=== PATIENT | female | born 1980 | race Caucasian/White ===

== ENCOUNTER → 2022-11-12 | Outpatient (CLI) | payer OTHER ==
[~2022-11-12] MED LIST: RT-ALBUTEROL SULF 2.5 MG/3 ML PRE-MIX VIAL IH ONE
== END ==
LOC: RT 10:09
PROVIDERS: ATTEND Family Medicine
DX: Z02.71 Encounter for disability determination (principal); R06.02 Shortness of breath; R06.00 Dyspnea, unspecified
CPT/HCPCS: 94060

== ENCOUNTER 2023-02-16 10:20 | Inpatient (IN) | payer MEDICAID ==
[2023-02-14 20:00] VITALS: BP 134/69
[~2023-02-16] VITALS: Ht 172.7 cm; Wt 130.0 kg
[2023-02-16] MEDS ORDERED: LACTULOSE SYRUP 10GM/15ML (ENULOSE) 30ML UDC PO PRN (11:00)
[2023-02-16] MEDS ORDERED: MELATONIN 3 MG TABLET PO PRN (11:00)
[2023-02-16] MEDS ORDERED: ALPRAZolam 0.25 MG (XANAX) TAB PO PRN (11:00)
[2023-02-16] MEDS ORDERED: DOCUSATE SODIUM 100 MG (COLACE) CAP PO PRN (11:00)
[2023-02-16] MEDS ORDERED: FLEET ENEMA ADULT 1 EA BTL PR PRN (11:00)
[2023-02-16] MEDS ORDERED: BISACODYL 10 MG SUPP (DULCOLAX) PR PRN (11:00)
[2023-02-16] MEDS ORDERED: diphenhydrAMINE 25 MG TAB (BENADRYL) PO PRN (11:00)
[2023-02-16] MEDS ORDERED: guaiFENesin/CODEINE (ROBITUSSIN AC) 10ML UDC PO PRN (11:00)
[2023-02-16] MEDS ORDERED: CALCIUM CARBONATE 500 MG (TUMS) TAB.CHEW PO PRN (11:00)
[2023-02-16] MEDS ORDERED: LOPERAMIDE 2 MG (IMODIUM) TABLET PO PRN (11:00)
[2023-02-16] MEDS ORDERED: ACETAMINOPHEN 325 MG TABLET PO PRN (11:00)
[2023-02-16] MEDS ORDERED: AMIT50TA3 PO (11:14)
[2023-02-16] MEDS ORDERED: RT-ALBUINH INH (11:14)
[2023-02-16] MEDS ORDERED: DULO30CA49 PO (11:27)
[2023-02-16] MEDS ORDERED: FAMO40TA6 PO (11:27)
[2023-02-16] MEDS ORDERED: [UNRECOGNIZED DRUG - OTHER] PO (11:27)
[2023-02-16] MEDS ORDERED: AMLO10TA4 PO (11:28)
[2023-02-16] MEDS ORDERED: DICY10CA12 PO (11:28)
[2023-02-16] MEDS ORDERED: ATOR80TA76 PO (11:28)
[2023-02-16] MEDS ORDERED: FURO-124 PO (11:30)
[2023-02-16] MEDS ORDERED: FLUT1BLS23 IH (11:30)
[2023-02-16] MEDS ORDERED: INSU100I48 SQ (11:40)
[2023-02-16] MEDS ORDERED: IPRA3AMP31 IH (11:40)
[2023-02-16] MEDS ORDERED: INSU500I SQ (11:40)
[2023-02-16] MEDS ORDERED: GABA800T10 PO (11:40)
[2023-02-16] MEDS ORDERED: DULO40CA2 PO (11:49)
[2023-02-16] MEDS ORDERED: LOSA100T4 PO (11:49)
[2023-02-16] MEDS ORDERED: HYDR-3584 PO (11:51)
[2023-02-16] MEDS ORDERED: HYDR50TA76 PO (11:51)
[2023-02-16] MEDS ORDERED: MECL-149 PO (11:55)
[2023-02-16] MEDS ORDERED: OXYB10TA29 PO (12:10)
[2023-02-16] MEDS ORDERED: POTA10TA PO (12:10)
[2023-02-16] MEDS ORDERED: MELA10CA2 PO (12:10)
[2023-02-16] MEDS ORDERED: METF-865 PO (12:10)
[2023-02-16] MEDS ORDERED: MVI (12:10)
[2023-02-16] MEDS ORDERED: PANT40GR PO (12:10)
[2023-02-16] MEDS ORDERED: MTP25TSR PO (12:10)
[2023-02-16] MEDS ORDERED: TIZA4CAP8 PO ×2 (12:10→12:11)
[2023-02-16] MEDS ORDERED: MELO7.5T46 PO (12:10)
[2023-02-16] MEDS ORDERED: MULT-1136 PO (12:11)
[2023-02-16] MEDS ORDERED: VANCO IV (12:34)
[2023-02-16 13:11] VITALS: BP 134/69
--- NOTE | 2023-02-16 15:33 | PM&R Post Admission Assessment ---
PM&R HP Date of Visit: Feb 16, 2023 Time of Visit: 15:30 History of Present Illness Chief complaint: Recovery from left metatarsal amputation by podiatry at [facility] HPI: This is a 42-year-old female whose primary care provider is a nurse practitioner on [address] [place] [address] in [place] who also sees Dr. Oleary cardiology and Dr. Chamberlain pulmonology who has a history of severe insulin resistance diabetes who takes a large amount of regular insulin due to resistance and who was unable to get a BiPAP set up for her severe sleep apnea so she is maintained on oxygen while hospitalized who presented from [facility] following a left metatarsal amputation by podiatry due to bone exposed with acute on chronic osteomyelitis. Currently she is doing much better on current pain medications that was restarted along with the rest of her home medication. She remains on vancomycin 1250 mg every 12 hours. [facility] H&P HPI: Gogo Diaz who is being admitted through the emergency room with chief complaint of leftfoot pain. She has a history of osteomyelitits and diabetic foot ulcer in the left foot, diabetes mellitus, asthma, COPD, hypertension.Patient was admitted 3 weeks ago for left diabetic foot wound and was diagnosed with osteomyelitis. She was discharged on antibiotics and completed them. After that she followed up with her PCP because she started having redness again. Friday she was started on Augmentin and she followed up with wound care on Friday, and at that time thought it was getting a little bit better. Today pain has worsened and redness has worsened. She denies any fever or chills. She denies any drainage of the wound. ? Anxiety ? Arthritis ? Asthma ? Calculus of kidney Two episodes, last 2012, lithotrpsy, first 1995 complicated by sepsis ? Cervical high risk human papillomavirus (HPV) DNA test positive ? Depression ? Diabetes mellitus Dx 2005 age 25 on insulin and oral med ? Gastroparesis 10/2007 ? GERD (gastroesophageal reflux disease) ? Headache ? High anion gap metabolic acidosis 02/06/2019 ? History of complications due to general anesthesia very sick afterwards ? HTN (hypertension) ? Hx of abnormal cervical Pap smear ? Hyperlipidemia ? Hypokalemia 02/05/2019 ? Hypomagnesemia 08/15/2018 ? IBS (irritable bowel syndrome) ? MRSA (methicillin resistant Staphylococcus aureus) ? Psychosis ? Pyelonephritis 01/31/2017 ? UTI due to extended-spectrum beta lactamase (ESBL) producing Escherichia coli [facility] discharge summary from 02/16/2023 Discharge Diagnoses and Relevant Hospital Course: [address] Active Hospital Problems Diagnosis ? Acute osteomyelitis ? Cellulitis ? Diabetic foot ulcer ? Osteomyelitis of left foot ? Mixed hyperlipidemia ? Obesity, Class III, BMI 40-49.9 (morbid obesity) ? Borderline personality disorder ? Diabetic polyneuropathy associated with type 2 diabetes mellitus ? Gastroparesis due to DM ? Essential hypertension Resolved Hospital Problems No resolved problems to display. [address] Gogo Gill 5b is a [address] 42 [address] femaleArial 5b who was admitted to [facility] on [address] 02/09/[address] and found to have a principle diagnosis of acute osteomyelitis of the left foot. 42 y/o F with pertinent PMH of diabetes and chronic foot wound who presented to the hospital with worsening pain and erythema in her foot. She originally incurred a wound to the plantar and distal aspect of her left foot in October. It has not healed since then. She was admitted in December for the wound, received IV antibiotics and debridement, but bone biopsy did not reveal osteomyelitis at that time. She was discharged on oral antibiotics. She restarted oral antibiotics (Augmentin) just prior to this admission, but has not seen significant improvement. XR suggestive of developing osteomyelitis in the left 1st metatarsal head. Wound care evaluation notes "bone palpable". MRI report pending. 02/11: No new issues. Pt did have some pain but it was relieved with prn analgesics. She is somewhat melancholy and requests the life teacher comes to speak with her, but declines to expound further. 02/12 patient was seen and examined. S/P toe amputation yesterday. Reported some pain this morning but pain medication is helping. 02/13 patient was seen and examined. Was scheduled to be discharged today but her OR culture came back positive for Gram positive cocci in clusters. I discussed with ID and microbiology. We will await susceptibility of the current culture to determine antibiotics to be discharged home with 02/14 patient was seen and examined. No new complains. I discussed with ID, patient is sensitive to Doxy. 02/15 patient was seen and examined. Awaiting placement tomorrow Today, patient was seen and examined at the bedside. She has no new complains. Her pathology came out as acute osteomyelitis. I have discharged her on Vancomycin to complete 03/30. She will follow up with ID to make adjustments to this medication. Patient discharged in stable condition Past [id number] Hx Past Med/Social Hx: Reviewed Nursing Past Med/Soc Hx, Reviewed and Corrections made Patient Social History Marrital Status: single Employed/Student: unemployed Alcohol Use: Denies Use Smoking Status: Former Smoker Past Medical History Surgeries: Orthopedic Respiratory: Sleep Apnea Currently Using CPAP: No Cardiac: High Cholesterol, Hypertension, Peripheral Vascular Neurological: Neuropathy Genitourinary: Kidney Infection, Bladder Infection, Kidney Stones, Renal Failure Gastrointestinal: Gastroesophageal Reflux Musculoskeletal: Arthritis Endocrine: Diabetes, Insulin dep PM&R Allergy/Meds/Data Review Allergies Coded Allergies: hydrocodone (Unverified Allergy, Severe, Anaphylaxis, 02/16/23) PER PATIENT, TOLERATED OXYCODONE FINE IN PAST 02/16/23 tramadol (Unverified Allergy, Severe, Anaphylaxis, 11/12/22) Sulfa (Sulfonamide Antibiotics) (Verified Allergy, Unknown, Vomiting, 02/16/23) dapagliflozin (Verified Allergy, Unknown, 02/16/23) liraglutide (Verified Allergy, Unknown, 02/16/23) Uncoded Allergies: fresh tomatoes, can eat them cooked (Allergy, Unknown, hives, 02/16/23) fish (Adverse Reaction, Unknown, Nausea/Vomiting, 02/16/23) Home Medications Scheduled Albuterol Sulfate (Ventolin Hfa), 2 PUFF INH Q6H Amitriptyline HCl (Amitriptyline HCl), 50-100 MG PO HS Amlodipine Besylate (Norvasc), 10 MG PO HS Atorvastatin Calcium (Atorvastatin Calcium), 80 MG PO HS Dicyclomine HCl (Dicyclomine HCl), 10 MG PO TID Duloxetine HCl (Duloxetine HCl), 40 MG PO BID Famotidine (Famotidine), 40 MG PO BID Fluticasone/Vilanterol (Fluticasone-Vilanterol 100-25), 1 EACH IH DAILY Furosemide (Lasix), 40 MG PO DAILY Gabapentin (Gabapentin), 800 MG PO TID Hydroxyzine HCl (Hydroxyzine HCl), 10 MG PO TID Hydroxyzine HCl (Hydroxyzine HCl), 50 MG PO HS Insulin Lispro (Insulin Lispro Kwikpen U-100), 100 UNIT SQ UD Insulin Regular, Human (Humulin R U-500 Kwikpen), 90 UNIT SQ BID Losartan Potassium (Cozaar), 100 MG PO DAILY Meclizine HCl (Meclizine HCl), 25 MG PO Q6H Melatonin (Melatonin), 10 MG PO HS Meloxicam (Meloxicam), 7.5 MG PO DAILY Metformin HCl (Metformin HCl ER), 500 MG PO BID Metoprolol Succinate (Metoprolol Succinate), 25 MG PO DAILY Multivitamin (Multivitamin), 1 EACH PO DAILY Oxybutynin Chloride (Oxybutynin Chloride ER), 10 MG PO HS Pantoprazole Sodium (Pantoprazole Sodium), 40 MG PO BID Potassium Chloride (K-Tab ER), 20 MEQ PO DAILY Tizanidine HCl (Tizanidine HCl), 4 MG PO BID [Citracal D Max], TAB PO DAILY [Vanco], 1,250 MG IV Q12H Scheduled PRN Ipratropium/Albuterol Sulfate (Iprat-Albut 0.5-3(2.5) mg/3 ml), 3 ML IH Q6H PRN for SHORTNESS OF BREATH Tizanidine HCl (Tizanidine HCl), 4 MG PO Q6H PRN for SPASMS Discontinued Medications Duloxetine HCl (Duloxetine HCl), 30 MG PO BID Discontinued Reason: No Longer Taking [Mvi], 1 TAB DAILY Discontinued Reason: Prescription changed Current Medications Current Medications Reviewed Laboratory Data Laboratory Tests 02/16/23 12:25: Glucometer 130H 02/16/23 15:17: Glucometer 156H Review of Systems Constitutional: see HPI, malaise, weakness EENTM: no symptoms reported Respiratory: no symptoms reported Cardiovascular: no symptoms reported Gastrointestinal: no symptoms reported Genitourinary: no symptoms reported Musculoskeletal: back pain, joint pain, muscle pain, muscle stiffness, muscle cramps Skin: no symptoms reported Psychiatric/Neurological: See HPI All Other Systems Reviewed Negative Unless Noted: Yes Physical Exam Physical Exam Vital Signs Vital Signs - First Documented 02/16/23 02/16/23 13:01 13:11 Temp 36.2 Pulse 84 Resp 20 B/P (MAP) 134/69 (90) Pulse Ox 99 O2 Delivery Nasal Cannula O2 Flow Rate 3.00 Capillary Refill : Height, Weight, BMI Height: '" Weight: lbs. oz. kg; 42.98 BMI Method: General Appearance: No Apparent Distress, WD/WN, Chronically ill, Obese Eyes: Bilateral Eye Normal Inspection, Bilateral Eye PERRL HEENT: PERRL/EOMI, Normal ENT Inspection, Pharynx Normal Neck: Full Range of Motion, Normal Inspection, Non Tender, Supple, Carotid Bruit Respiratory: Chest Non Tender, Lungs Clear, Normal Breath Sounds, No Accessory Muscle Use, No Respiratory Distress Cardiovascular: Regular Rate, Rhythm, No Edema, No Gallop, No JVD, No Murmur, Normal Peripheral Pulses Gastrointestinal: Normal Bowel Sounds, No Organomegaly, No Pulsatile Mass, Non Tender, Soft Back: Normal Inspection, No CVA Tenderness, No Vertebral Tenderness Extremity: Normal Capillary Refill, Normal Inspection, Normal Range of Motion, Non Tender, No Calf Tenderness, No Pedal Edema Neurologic/Psychiatric: Alert, Oriented x3, No Motor/Sensory Deficits, certified master safecracker II- XII Norm as Tested, Abnormal Gait, Depressed Affect, Motor Weakness (Left foot and leg due to pain and amputation) Skin: Normal Color, Warm/Dry Lymphatic: No Adenopathy PM&R Medical Assessment & Plan REHAB/MEDICAL ASSESSMENT AND PLAN: REHAB IMPAIRMENT GROUP: Left metatarsal amputation due to acute on chronic osteomyelitis with bone exposed ETIOLOGIC DIAGNOSIS: Left metatarsal amputation due to acute on chronic osteomyelitis with bone expos ed The comorbidities that impact the patients function and/or functional outcome by: diabetes with significant insulin resistance, obesity, noncompliance with BiPAP, REHAB PLAN: The patient is being admitted to our comprehensive inpatient rehabilitation facility and can tolerate the intensity of service consisting of at least: 180 minutes of therapy a day, 5 out of 7 days a week Rehab treatment will consist of: PT and OT will focus on assistive devices in order to regain independence with ambulation and independence in ADLs The patient/family has a good understanding of our discharge process and will benefit from an interdisciplinary inpatient rehabilitation program. The patient has potential to make improvement and is in need of at least two of the following multidisciplinary therapies including but not limited to physical, occupational, speech, and prosthetics and orthotics. Additionally the patient will need services from respiratory, nutritional services, wound care, psychology, etc. (Customize this to each patient). Given the patients complex condition and risk of further medical complications, rehabilitation services cannot be safely or effectively provided at a lower level of care such as a usp facility. BARRIERS TO DISCHARGE: [id number] diabetes ESTIMATED LOS: 7 days DISPOSITION: home RELEVANT CHANGES SINCE PREADMISSION SCREENING: I have compared the patients medical and functional status at the time of the preadmission screening and there are: no changes PROGNOSIS: fair REHABILITATION GOALS: 1.PT and OT will focus on assistive devices in order to regain independence with ambulation and independence in ADLs All the above goals were reviewed with the patient and he/she is in agreement. By signing this document, I acknowledge that I have personally performed a full physical examination on this patient within 24 hours of admission to this inpatient rehabilitation facility and have determined the patient to be able to tolerate the above course of treatment at an intensive level for a reasonable period of time. I will be completing a detailed individualized Plan of Care for this patient by day #4 of the patients stay based upon the Preadmission Screen, the Post-Admission Evaluation, and the therapy evaluations. Admission Dx/Comorbidities: (1) Status post amputation of left foot through metatarsal bone ICD Codes: Z89.432 - Acquired absence of left foot Assessment/Plan Assessment and Plan Assess & Plan/Chief Complaint Assessment: Status post left first metatarsal amputation due to acute on chronic osteomyelitis with bone exposed on presentation Diabetes mellitus with severe insulin resistance on large amount of regular insulin Obesity Noncompliance with BiPAP Hypertension Hyperlipidemia Renal lithiasis history Plan: IV vancomycin Local wound intermediate meds Pain control Bowel regimen KRISTINA HERCULES DO Feb 16, 2023 15:33
[2023-02-16] MEDS ORDERED: RT-ALBUTEROL/IPRATROPIUM 3 ML (DUONEB) VIAL IH PRN (15:45)
[2023-02-16] MEDS ORDERED: INSULIN LISPRO 100 UNIT SQ SCH (15:45)
[2023-02-16] MEDS ORDERED: ONDANSETRON 4 MG/2 ML (SDV) Z0FRAN IVP PRN (15:45)
[2023-02-16] MEDS: MECLIZINE 25 MG (ANTIVERT) TAB PO SCH ×2 (16:30→22:29)
[2023-02-16] MEDS: inSUlin (REGULAR) HUMAN 1 UNIT/0.01 ML (CHARGE PER UNIT) SC SCH (16:56)
[2023-02-16] MEDS: VANCOMYCIN 1250MG/250ML PREMIX 250 ML IV SCH (17:42)
[2023-02-16 19:16] VITALS: BP 118/54
[2023-02-16] MEDS: ONDANSETRON 4 MG (ZOFRAN) ORAL DISSOLVE TAB PO PRN ×2 (20:57→21:12)
[2023-02-16] MEDS: DULoxetine 20 MG (CYMBALTA) CAP PO SCH (20:58)
[2023-02-16] MEDS: metFORMIN XR 500 MG (GLUCOPHAGE XR) TAB PO SCH (20:58)
[2023-02-16] MEDS: hydrOXYzine (ATARAX) 10 MG TAB PO SCH (20:59)
[2023-02-16] MEDS: ENOXAPARIN 40 MG/0.4 ML (LOVENOX) SYR SC SCH (20:59)
[2023-02-16] MEDS: SENNA W/DOCUSATE (SENOKOT S) TABLET PO SCH (21:00)
[2023-02-16] MEDS ORDERED: hydrOXYzine (VISTARIL/ATARAX) 25 MG capsule/tablet PO SCH (21:00)
[2023-02-16] MEDS: DOCUSATE SODIUM 100 MG (COLACE) CAP PO SCH (21:00)
[2023-02-16] MEDS: polyethylene glycoL POWDER 17 GM (MIRALAX) PACK PO SCH (21:00)
[2023-02-16] MEDS ORDERED: AMITRIPTYLINE 25 MG (ELAVIL) TAB PO SCH (21:00)
[2023-02-16] MEDS: FAMOTIDINE 20 MG (PEPCID) TABLET PO SCH (21:01)
[2023-02-16] MEDS: amLODIPine 10 MG (NORVASC) TAB PO SCH (21:01)
[2023-02-16] MEDS: MELATONIN 10 MG TABLET PO SCH (21:01)
[2023-02-16] MEDS: OXYBUTYNIN (DITROPAN) 5 MG TAB PO SCH (21:01)
[2023-02-16] MEDS: DICYCLOMINE 10 MG (BENTYL) CAP PO SCH (21:01)
[2023-02-16] MEDS: GABAPENTIN 400 MG (NEURONTIN) CAP PO SCH (21:02)
[2023-02-16] MEDS: PANTOPRAZOLE 40 MG (PROTONIX) TAB PO SCH (21:09)
[2023-02-16] MEDS: RT-ALBUTEROL HFA 8.5 GM INHALER IH SCH (21:12)
[2023-02-17] MEDS: RT-ALBUTEROL HFA 8.5 GM INHALER IH SCH ×4 (03:07→20:59)
[2023-02-17] MEDS: MECLIZINE 25 MG (ANTIVERT) TAB PO SCH (04:00)
[2023-02-17] MEDS: VANCOMYCIN 1250MG/250ML PREMIX 250 ML IV SCH ×2 (05:54→18:46)
[2023-02-17 06:08] LABS: BASOPHILS # (AUTO) 0.1 10^3/uL (0.0-0.1); BASOPHILS % (AUTO) 1 % (0-10); EOSINOPHILS # (AUTO) 0.2 10^3/uL (0.0-0.3); EOSINOPHILS % (AUTO) 2 % (0-10); HEMATOCRIT 31 % (35-52); HEMOGLOBIN 9.5 g/dL (11.5-16.0); LYMPHOCYTES # (AUTO) 1.6 10^3/uL (1.0-4.0); LYMPHOCYTES % (AUTO) 15 % (12-44); MEAN CORPUSCULAR HEMOGLOBIN 29 pg (25-34); MEAN CORPUSCULAR HGB CONC 31 g/dL (32-36); MEAN CORPUSCULAR VOLUME 93 fL (80-99); MEAN PLATELET VOLUME 9.6 fL (9.0-12.2); MONOCYTES # (AUTO) 0.4 10^3/uL (0.0-1.0); MONOCYTES % (AUTO) 4 % (0-12); NEUTROPHILS # (AUTO) 7.6 10^3/uL (1.8-7.8); NEUTROPHILS % (AUTO) 75 % (42-75); PLATELET COUNT 382 10^3/uL (130-400); WHITE BLOOD COUNT 10.2 10^3/uL (4.3-11.0)
[2023-02-17 06:19] LABS: ALBUMIN 3.2 GM/DL (3.2-4.5)
[2023-02-17 06:20] LABS: POTASSIUM 4.4 MMOL/L (3.6-5.0)
[2023-02-17 06:21] LABS: CALCIUM 9.1 MG/DL (8.5-10.1)
[2023-02-17 06:22] LABS: TOTAL PROTEIN 6.6 GM/DL (6.4-8.2)
[2023-02-17 06:24] LABS: BILIRUBIN,TOTAL 0.3 MG/DL (0.1-1.0)
[2023-02-17 06:26] LABS: CREATININE SERUM 0.88 MG/DL (0.60-1.30)
--- NOTE | 2023-02-17 06:26 | PM&R Progress Note ---
Subjective HPI/CC On Admission Date Seen by Provider: Feb 17, 2023 Time Seen by Provider: 09:00 Subjective/Events-last exam 02/17/2023: Patient doing really well Thinks she is retaining urine so we will BladderScan Oxycodone makes her nauseated requesting ibuprofen Labs reviewed Review of Systems General: Fatigue, Malaise Musculoskeletal: foot pain Neurological: Weakness Objective Exam Vital Signs Vital Signs Date Time Temp Pulse Resp B/P (MAP) Pulse Ox O2 Delivery O2 Flow Rate FiO2 02/17/23 20:59 95 Nasal Cannula 3.00 02/17/23 19:57 36.2 87 16 143/72 (95) Capillary Refill : General Appearance: No Apparent Distress, WD/WN, Chronically ill, Obese HEENT: PERRL/EOMI, Normal ENT Inspection, Pharynx Normal Neck: Full Range of Motion, Normal Inspection, Non Tender, Supple, Carotid Bruit Respiratory: Chest Non Tender, Lungs Clear, Normal Breath Sounds, No Accessory Muscle Use, No Respiratory Distress Cardiovascular: Regular Rate, Rhythm, No Edema, No Gallop, No JVD, No Murmur, Normal Peripheral Pulses Gastrointestinal: Normal Bowel Sounds, No Organomegaly, No Pulsatile Mass, Non Tender, Soft Back: Normal Inspection, No CVA Tenderness, No Vertebral Tenderness Extremity: Normal Capillary Refill, Normal Inspection, Normal Range of Motion, Non Tender, No Calf Tenderness, No Pedal Edema Neurologic/Psychiatric: Alert, Oriented x3, No Motor/Sensory Deficits, bisque finisher II- XII Norm as Tested, Abnormal Gait, Depressed Affect, Motor Weakness (Left foot and leg due to pain and amputation) Skin: Normal Color, Warm/Dry, Other (left foot dressing intact) Lymphatic: No Adenopathy Results/Procedures Lab Laboratory Tests 02/17/23 05:53 Patient resulted labs reviewed. [facility] Transfers Therapy Code Descriptions/Definitions Functional Cyrus Measure: 0=Not Assessed/NA 4=Minimal Assistance 1=Total Assistance 5=Supervision or Setup 2=Maximal Assistance 6=Modified Cyrus 3=Moderate Assistance 7=Complete IndependenceSCALE: Activities may be completed with or without assistive devices. 2-[id number]-[id number] completes the activity by him/herself with no assistance from a helper. 5-Set-up or Clean-up Assistance-helper sets up or cleans up; patient completes activity. Marion assists only prior to or following the activity. 4-Supervision or Touching Assistance-helper provides verbal cues and/or touching/steadying and/or contact guard assistance as patient completes activity. Assistance may be provided throughout the activity or intermittently. 3-Partial/Moderate Assistance-helper does LESS THAN HALF the effort. Marion lifts, holds or supports trunk or limbs, but provides less than half the effort. 2-Substantial/Maximal Assistance-helper does MORE THAN HALF the effort. Marion lifts or holds trunk or limbs and provides more than half the effort. 4-Kmmcrtngq-sbkvxa does ALL the effort. Patient does none of the effort to c omplete the activity. Or, the assistance of 2 or more helpers is required for the patient to complete the activity. If activity was not attempted, code reason: 7-Patient Refused. 9-Not Applicable-not attempted and the patient did not perform the activity before the current illness, exacerbation or injury. 10-Not Attempted due to Environmental Limitations-(lack of equipment, weather restraints, etc.). 88-Not Attempted due to Medical Conditions or Safety Concerns. Assessment/Plan Assessment and Plan Assess & Plan/Chief Complaint Assessment: Status post left first metatarsal amputation due to acute on chronic osteomyelitis with bone exposed on presentation Diabetes mellitus with severe insulin resistance on large amount of regular insulin Obesity Noncompliance with BiPAP Hypertension Hyperlipidemia Renal lithiasis history Plan: IV vancomycin Local wound [facility] meds Pain control Bowel regimen 02/17/2023: Add ibuprofen Monitor closely (1) Status post amputation of left foot through metatarsal bone KRISTINA HERCULES DO Feb 17, 2023 06:26
[2023-02-17] MEDS: inSUlin (REGULAR) HUMAN 1 UNIT/0.01 ML (CHARGE PER UNIT) SC SCH ×2 (07:15→12:10)
[2023-02-17 07:40] VITALS: BP 132/60
[2023-02-17 07:49] VITALS: BP 132/60
--- NOTE | 2023-02-17 08:19 | Physical Therapy Evaluation ---
PT Evaluation-General Medical Diagnosis Admission Date Feb 16, 2023 at 10:37 Medical Diagnosis: L Metatarsal Amputation Onset Date: Feb 11, 2023 Therapy Diagnosis Therapy Diagnosis: Weakness, Decreased functional mobility Precautions Precautions/Isolations: Fall Prevention, Standard Precautions Weight Bear Status Right Lower Extremity: Right Full Weight Bearing Left Lower Extremity: Left Non Weight Bearing Referral Physician: Argelia Reason for Referral: Evaluation/Treatment Medical History Pertinent Medical History: COPD, HTN, PVD Additional Medical History history of osteomyelitits and diabetic foot ulcer in the left foot, diabetes mellitus, asthma, COPD, hypertension Current History L metatarsal amputation on 02/11/2023; NWB Jose BURRELL Reviewed History: Yes Social History Home: Single Level Current Living Status: Children Entry Into Home: Stairs Without Railing PT Steps Into Home: 8 PT Steps Inside Home: 1 Pt lives at home with her 8 y/o son in a single story house. Approximately 8 steps to enter with R HR. 1 small step in the home. Tub shower with grab bars. Standard toilet. Pt reports that she can get a SC. Mother lives 5 min away Prior Prior Level of Function SCALE: Activities may be completed with or without assistive devices. 4-Loyylaiujr-myooehc completes the activity by him/herself with no assistance from a helper. 5-Set-up or Clean-up Assistance-helper sets up or cleans up; patient completes activity. [place] assists only prior to or following the activity. 4-Supervision or Touching Assistance-helper provides verbal cues and/or touching/steadying and/or contact guard assistance as patient completes activity . Assistance may be provided throughout the activity or intermittently. 3-Partial/Moderate Assistance-helper does LESS THAN HALF the effort. [place] lifts, holds or supports trunk or limbs, but provides less than half the effort. 2-Substantial/Maximal Assistance-helper does MORE THAN HALF the effort. [place] lifts or holds trunk or limbs and provides more than half the effort. 3-Dugyisoao-lsrgtl does ALL the effort. Patient does none of the effort to complete the activity. Or, the assistance of 2 or more helpers is required for the patient to complete the activity. If activity was not attempted, code reason: 7-Patient Refused. 9-Not Applicable-not attempted and the patient did not perform the activity before the current illness, exacerbation or injury. 10-Not Attempted due to Environmental Limitations-(lack of equipment, weather restraints, etc.). 88-Not Attempted due to Medical Conditions or Safety Concerns. Bed Mobility: 6 Transfers (B,C,W/C): 6 Gait: 6 Stairs: 6 Wheelchair Mobility: 9 Indoor Mobility (Ambulation): Independent Stairs: Independent Prior Devices Use: None Pt reports that she was Ind with walking, transfers, and stairs at OF without an AD. Pt reports still driving during the daytime. Pt reports she does have a FWW to use after d/c. Pt reports needing some assistance for bathing at [facility]. PT Evaluation-Current Subjective Pt is agreeable to PT Pain Numeric Pain Scale: 3 Location: Left Location Body Site: Foot Pain Description: Stabbing, Burning Section J - Health Conditions 1. Rarely or not at all 2. Occasionally 3. Frequently 4. Almost constantly 8. Unable to answer Pain Effect on Sleep: 2 Pain Interference with Therapy: 3 Pain Interference w/Day-to-Day: 3 Pt/Family Goals Safely return home Objective Patient Orientation: Person, Place, Time, Situation Attachments: Oxygen (3L ) ROM/Strength ROM Upper Extremities WFL ROM Lower Extremities WFL Strength Upper Extremities B UE MMT - 4/5 grossly Strength Lower Extremities B LE MMT - 4-/5 grossly Integumentary/Posture Integumentary see nursing note Bowel Incontinence: No Bladder Incontinence: No Sensory Vision: Wears Glasses Hearing: Functional Hand Dominance: Right Sensation Right Upper Extremit: Impaired Sensation Left Upper Extremity: Impaired Sensation Right Lower Extremit: Impaired Sensation Left Lower Extremity: Impaired Sensation Lower Extremities Decreased sensation in B feet Transfers Roll Left & Right (QC): 4 (SBA) Sit to Lying (QC): 4 (SBA) Lying to Sitting/Side of Bed(Q: 4 (SBA) Sit to Stand (QC): 4 (CGA) Chair/Rxu-em-Bghzp Xfer(QC): 4 (CGA) Toilet Transfer (QC): 4 (CGA) Car Transfer (QC): 88 Gait Does the Patient Walk?: Yes Mode of Locomotion: Both Anticipated Mode of Locomotion: Both Walk 10 feet (QC): 4 (CGA) Walk 50 ft with 2 Turns(QC): 88 Walk 150 ft (QC): 88 Walking 10ft/uneven surface-QC: 88 Distance: 10ft Gait Assistive Device: FWW Wheelchair Training Does the Pt Use a Wheelchair?: Yes Distance: 150ft Wheel 50 ft with 2 turns (QC): 4 (SBA) Wheel 150 ft (QC): 4 (SBA) Type of Wheelchair: Manual Stairs 1 Step (curb) (QC): 88 4 Steps (QC): 88 12 Steps (QC): 88 Walking Assistive Device: Walker Balance Sitting Static: Normal Sitting Dynamic: Good Standing Static: Good Standing Dynamic: Fair Picking up an Object (QC): 4 (CGA) Special Test Comments KU standing balance scale - 2+/5 (goal - 4/5) Treatment Pt completed bed mobility tasks with SBA. Pt completed transfers with CGA and Min v/c for technique and hand placement. Pt completed w/c mobility x 150ft with SBA. Pt edu on supine and seated HEP, with handout provided (1 in chart, 1 in sleeve in pts room, and 1 to pt). Pt is able to abide by NWB L LE. Pt requires extended time with all functional mobility and requires several rest breaks throughout treatment. Pt left in the recliner with call light in reach and all needs met. Assessment/Needs Pt tolerated PT well and would benefit from skilled PT to improve strength and functional mobility, and safely d/c home. Rehab Potential: Fair Post Rehab Potential-Barriers: NWB L LE; decreased strength/endurance Equipment Needs SC, but pt says she can get one; Pt reports she has a FWW; need BSC and w/c? PT Nursing Home Goals Greenhouse Technician Goals PT Greenhouse Technician Goals Time Frame: Feb 28, 2023 Roll Left to Right (QC): 6 (Pt will be Ind with bed mobility ) Sit to Lying (QC): 6 (Pt will be Ind with bed mobility ) Lying-Sitting on Side/Bed(QC): 6 (Pt will be Ind with bed mobility ) Sit to Stand (QC): 6 (Pt will be Ind with transfers ) Chair/Ezf-wf-Fieik Xfer(QC): 6 (Pt will be Ind with transfers ) Toilet/Commode Transfer (QC): 6 (Pt will be Ind with transfers ) Car Transfer (QC): 6 (Pt will be Ind with transfers ) Does the Patient Walk: Yes Walk 10 feet (QC): 4 (Pt will be SBA for walking and stairs and abide by NWB to the L LE. ) Walk 10ft-Uneven Surface(QC): 4 (Pt will be SBA for walking and stairs and abide by NWB to the L LE. ) Walk 50ft with 2 Turns (QC): 4 (Pt will be SBA for walking and stairs and abide by NWB to the L LE. ) Walk 150 ft (QC): 4 (Pt will be SBA for walking and stairs and abide by NWB to the L LE. ) Does the Pt use WC or Scooter?: Yes Wheel 50 feet with 2 turns (QC: 6 (Ind with w/c ) Type: Manual Wheel 150 feet: 6 (Ind with w/c ) Type: Manual 1 Step (curb) (QC): 4 (Pt will be SBA for walking and stairs and abide by NWB to the L LE. ) 4 Steps (QC): 4 (Pt will be SBA for walking and stairs and abide by NWB to the L LE. ) 12 Steps (QC): 4 (Pt will be SBA for walking and stairs and abide by NWB to the L LE. ) Picking up an Object (QC): 6 (Ind with standing/picking up an object ) KU standing balance score goal = 4/5 PT Plan Problem List Problem List: Activity Tolerance, Functional Strength, Safety, Balance, Gait, Transfer, Bed Mobility Treatment/Plan Treatment Plan: Continue Plan of Care Treatment Plan: Bed Mobility, Concurrent Therapy, Education, Functional Activity [place], Functional Strength, Group Therapy, Gait, Safety, Therapeutic Exercise, Transfers Treatment Duration: Feb 28, 2023 Frequency: At least 5 of 7 days/Wk (IRF) Estimated Hrs Per Day: 1.5 hours per day Patient and/or Family Agrees t: Yes Safety Risks/Education Patient Education: Gait Training, Transfer Techniques, Issued Written HEP, Reviewed Precautions, W/C Management, Safety Issues Teaching Recipient: Patient Teaching Methods: Demonstration, Discussion Response to Teaching: Verbalize Understanding, Return Demonstration, Reinforcement Needed Discharge Recommendations Therapy Discharge Recommendati: Home & Family Equpiment Recommendations-D/C: Front Wheeled Walker, Shower Chair, Standard Bedside Commode, Manual Wheelchair Discharge Status/Home Program cont per POC Barriers to Progress NWB L LE Target Placement home with family support; mother lives 5 min away Time Time In: 800 Time Out: 930 DATE: Feb 17, 2023 Total Billed Treatment Time: 90 Total Billed Treatment 90 min ([id number]) 30 min EVH ([id number]) 60 min ([id number]) 1 visit EX x 2 FA x 2 RJ CORDON PT Feb 17, 2023 08:19
[2023-02-17] MEDS: MULTIVIT W/MINERALS TAB (THERAGRAN M) PO SCH (08:45)
[2023-02-17] MEDS: DICYCLOMINE 10 MG (BENTYL) CAP PO SCH ×2 (08:45→12:54)
[2023-02-17] MEDS: GABAPENTIN 400 MG (NEURONTIN) CAP PO SCH ×3 (08:46→20:36)
[2023-02-17] MEDS: DULoxetine 20 MG (CYMBALTA) CAP PO SCH ×2 (08:46→20:35)
[2023-02-17] MEDS: FUROSEMIDE 40 MG (LASIX) TAB PO SCH (08:46)
[2023-02-17] MEDS: DOCUSATE SODIUM 100 MG (COLACE) CAP PO SCH ×2 (08:46→20:36)
[2023-02-17] MEDS: metFORMIN XR 500 MG (GLUCOPHAGE XR) TAB PO SCH ×2 (08:46→20:39)
[2023-02-17] MEDS: SENNA W/DOCUSATE (SENOKOT S) TABLET PO SCH ×2 (08:47→20:37)
[2023-02-17] MEDS: FAMOTIDINE 20 MG (PEPCID) TABLET PO SCH ×2 (08:47→20:38)
[2023-02-17] MEDS: MELOXICAM 7.5 MG (MOBIC) TABLET PO SCH (08:47)
[2023-02-17] MEDS: LOSARTAN 100 MG (COZAAR) TABLET PO SCH (08:47)
[2023-02-17] MEDS: hydrOXYzine (ATARAX) 10 MG TAB PO SCH ×3 (08:47→20:38)
[2023-02-17] MEDS: OXYBUTYNIN (DITROPAN) 5 MG TAB PO SCH ×2 (08:48→20:35)
[2023-02-17] MEDS: ENOXAPARIN 40 MG/0.4 ML (LOVENOX) SYR SC SCH ×2 (08:48→20:41)
[2023-02-17] MEDS: PANTOPRAZOLE 40 MG (PROTONIX) TAB PO SCH ×2 (08:49→20:38)
[2023-02-17] MEDS: polyethylene glycoL POWDER 17 GM (MIRALAX) PACK PO SCH ×3 (08:53→20:39)
[2023-02-17] MEDS: FLUTICASONE/VILANTEROL 100 MCG 14'S (BREO) IH SCH (10:00)
[2023-02-17] MEDS ORDERED: MECLIZINE 25 MG (ANTIVERT) TAB PO PRN (10:15)
[2023-02-17] MEDS: KCL 20 MEQ TAB (K-DUR) PO SCH (10:25)
--- NOTE | 2023-02-17 11:04 | Occupational Therapy Eval ---
OT Evaluation-General/PLF Medical Diagnosis Admission Date Feb 16, 2023 at 10:37 Medical Diagnosis: S/P Lt Transmetatarsal Amputation, on 02/16/23 Onset Date: Feb 11, 2023 Therapy Diagnosis Therapy Diagnosis: UE weakness, need for assitance w/ ADLs Precautions Precautions/Isolations: Fall Prevention, Standard Precautions Weight Bear Status Weight Bearing Restriction: Non Weight Bearing Location Restriction: L LE Referral Physician: Argelia Referral Reason: Activity Tolerance, Self Care, Evaluation/Treatment, Strengthening/ROM Medical History Pertinent Medical History: COPD, HTN, PVD Additional Medical History Status post left first metatarsal amputation due to acute on chronic osteomyelitis with bone exposed on presentation. Diabetes mellitus with severe insulin resistance on large amount of regular insulin. Obesity. Noncompliance with BiPAP. Hypertension. Hyperlipidemia. Renal lithiasis history Social History Home: Single Level Current Living Status: Children Entry Into Home: Stairs Without Railing Steps Into Home: 8 Steps Inside Home: 1 Other Obstacles: Patient has a back entry w/ yard slope and uneven surfaces w/ 4 steps ADL-Prior Level of Function SCALE: Activities may be completed with or without assistive devices. 5-Mmnqplorki-vmqrqux completes the activity by him/herself with no assistance from a helper. 5-Set-up or Clean-up Assistance-helper sets up or cleans up; patient completes activity. [place] assists only prior to or following the activity. 4-Supervision or Touching Assistance-helper provides verbal cues and/or touching/steadying and/or contact guard assistance as patient completes activity. Assistance may be provided throughout the activity or intermittently. 3-Partial/Moderate Assistance-helper does LESS THAN HALF the effort. [place] lifts, holds or supports trunk or limbs, but provides less than half the effort. 2-Substantial/Maximal Assistance-helper does MORE THAN HALF the effort. [place] lifts or holds trunk or limbs and provides more than half the effort. 6-Sftpdhmfl-kqswne does ALL the effort. Patient does none of the effort to complete the activity. Or, the assistance of 2 or more helpers is required for the patient to complete the activity. If activity was not attempted, code reason: 7-Patient Refused. 9-Not Applicable-not attempted and the patient did not perform the activity before the current illness, exacerbation or injury. 10-Not Attempted due to Environmental Limitations-(lack of equipment, weather restraints, etc.). 88-Not Attempted due to Medical Conditions or Safety Concerns. Self Care: Independent Functional Cognition: Independent DME/Equipment: Grab Bars (2 in tub shower. GB by regular toilet) DME/Equipment Comments Patient reports she has a 02 concentrator at home and a portable that plugs in to car w/ traveling. 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 Drive Self: Yes (is osorio to drive, mother owns vehicle and mother shares driving) OT Current Status Subjective Patient is agreeable to OT. During interview process patient allows phone to roll to VM to not interfere w/ therapy session Pain Numeric Pain Scale: 5-Moderate Pain Location: Left Location Body Site: Foot Comment: slight sharma increase from PT therapy session this morning. RN notified Mental Status/Objective Patient Orientation: Person, Place, Time, Situation Attachments: Oxygen (3 liters NC), Other-See Comments (wound care dressing on LLE. IV port) Current Hand Dominance: Right Upper Extremity ROM BUE ROM WFLS, close joint approximation limited by excessive soft tissue Upper Extremity Coordination BUE FMC INTACT, GMC INTACT, VCs for breathe support during functional tasks. Fair+ static standing balance, Fair dynamic standing balance. Balance challenged w/ one hand support on FWW and functional reach w/ left hand in laterally direction Upper Extremity Sensation BUE INTACT Upper Extremity Strength -4/5. Tolerates UE arm chair push ups x2, Sustains strength and endurance for NWB LLE and use of FWW 8 feet ADL-Treatment Eating (QC): 6 Oral Hygiene (QC): 6 Shower/Bathe Self (QC): 4 (SBA sitting on bench in walk in shower w/ one vertical and one horz GB w/ HHSH) Upper Body Dressing (QC): 5 Lower Body Dressing (QC): 3 (uses figure 4 technique crossing foot over) On/Off Footwear (QC): 4 Toileting Hygiene (QC): 4 Required additional person for walk in shower transfer w/ FWW d/t patient report s of RLE feeling like JELLO, and fatigued BUEs Education OT Patient Education: Correct positioning, Exercise program, Instructions don/doff splint/brace (covering wound and IV instruction), Modified ADL techniques, Progress toward Goal/Update tx plan, Purpose of tx/functional activities, Reviewed precautions, Rehab process, Safety issues, Transfer techniques, Use of adapted equipment, W/C management Teaching Recipient: Patient Teaching Methods: Demonstration, Discussion Response to Teaching: Verbalize Understanding, Return Demonstration, Reinforcement Needed BIMS CAM BIMS Expression of Ideas and Wants: Without Difficulty Understanding Verbal Content: Understands Brief Interview/Mental Status: No IRF EMETERIO BIMS: IRF EMETERIO BIMS Response (Comments) Value Repitition of Three Words Three 3 Recalls Socks Yes, After Cueing (Wear) 1 Recalls Blue Yes, No Cue Required 2 Recalls Bed Yes, After Cueing 1 Year Correct 3 Month Accurate Within 5 Days 2 Day Correct 1 Total 13 Patient Normally Able to Recal: Current Session, Staff Names and faces, That he/she in a hsp Should Staff Asses. Mental St.: No CAM Mental Status Change/Baseline: 0 Inattention: 0 Disorganized thinkin Altered level of consciousness: 0 OT Short Term Goals Short Term Goals Time Frame: Feb 22, 2023 Eatin Oral hygiene: 6 Upper body dressin OT Mop Handle Assembler Goals Mop Handle Assembler Goals Eating (QC): 6 Oral Hygiene (QC): 6 Toileting Hygiene (QC): 6 Shower/Bathe Self (QC): 6 Upper Body Dressing (QC): 6 Lower Body Dressing (QC): 6 On/Off Footwear (QC): 6 1=Demonstrate adherence to instructed precautions during ADL tasks. 2=Patient will verbalize/demonstrate understanding of assistive devices/modifications for ADL. 3=Patient will improve strength/tolerance for activity to enable patient to perform ADL's. OT Education/Plan Problem List/Assessment Assessment: Decreased Activ Tolerance, Decreased UE Strength, Impaired Funct Balance, Impaired I ADL's, Impaired Self-Care Skills Discharge Recommendations Plan/Recommendations: Continue POC Equpiment Recommendations-D/C: Extended Bath Bench Treatment Plan/Plan of Care Treatment,Training & Education: Yes Patient would benefit from OT for education, treatment and training to promote independence in ADL's, mobility, safety and/or upper extremity function for ADL's. Plan of Care: ADL Retraining, Cognitive Retraining, Concurrent Therapy, Functional Mobility, Group Exercise/Act as Ind, UE Funct Exercise/Act Treatment Duration: Mar 08, 2023 Frequency: At least 5 of 7 days/Wk (IRF) Estimated Hrs Per Day: 1.5 hours per day Rehab Potential: Good Time Start Time: 11:20 Stop Time: 11:30 DATE: Feb 17, 2023 Total Time Billed (hr/min): 10 Billed Treatment Time 1 EVM 10 min [id number] am DORIS BRAMBILA OT Feb 17, 2023 11:04
--- NOTE | 2023-02-17 12:06 | Occupational Ther Daily Note ---
OT Current Status-Daily Note Subjective Took over care from OTR/L. Pt agrees to therapy. 5/10 pain, nrsg aware. Mental Status/Objective Patient Orientation: Person, Place, Time, Situation Attachments: IV, Oxygen (3L) ADL-Treatment Pt agrees to shower. Pt requires assist x2 for safety to transfer into shower, min A to transfer out of shower. SBA for shower as pt completed entire shower sitting on shower bench using grabbars and hand held shower, assist to cover IV and L foot. Set up for UBD. Pt able to thread pants over feet then assist to hike pants over hips to don, CGA to doff, overall min A. Pt demonstrates ability to complete oral care independent in sitting. Pt used figure 4 to don/doff sock and thread over R foot. Pt demonstrates ability to complete toilet hygiene sitting on toilet, assist to hike pants over hips due to balance issues. After therapy, pt sitting in recliner with call light/phone in reach. All needs met in room. Therapy Code Descriptions/Definitions Functional [place] Measure: 0=Not Assessed/NA 4=Minimal Assistance 1=Total Assistance 5=Supervision or Setup 2=Maximal Assistance 6=Modified [place] 3=Moderate Assistance 7=Complete IndependenceSCALE: Activities may be completed with or without assistive devices. 4-Aoaamyujpc-fbadhgv completes the activity by him/herself with no assistance from a helper. 5-Set-up or Clean-up Assistance-helper sets up or cleans up; patient completes activity. [place] assists only prior to or following the activity. 4-Supervision or Touching Assistance-helper provides verbal cues and/or touching/steadying and/or contact guard assistance as patient completes activity. Assistance may be provided throughout the activity or intermittently. 3-Partial/Moderate Assistance-helper does LESS THAN HALF the effort. [place] lifts, holds or supports trunk or limbs, but provides less than half the effort. 2-Substantial/Maximal Assistance-helper does MORE THAN HALF the effort. [place] lifts or holds trunk or limbs and provides more than half the effort. 6-Ctfuzqcnc-obzqpo does ALL the effort. Patient does none of the effort to complete the activity. Or, the assistance of 2 or more helpers is required for the patient to complete the activity. If activity was not attempted, code reason: 7-Patient Refused. 9-Not Applicable-not attempted and the patient did not perform the activity before the current illness, exacerbation or injury. 10-Not Attempted due to Environmental Limitations-(lack of equipment, weather restraints, etc.). 88-Not Attempted due to Medical Conditions or Safety Concerns. OT Short Term Goals Short Term Goals Time Frame: Feb 22, 2023 Eatin Oral hygiene: 6 Upper body dressin OT Avionics Technician Goals Intermediate Goals Acute change in mental status: 0 Inattention: 0 Disorganized thinkin Altered level of consciousness: 0 Eating (QC): 6 Oral Hygiene (QC): 6 Toileting Hygiene (QC): 6 Shower/Bathe Self (QC): 6 Upper Body Dressing (QC): 6 Lower Body Dressing (QC): 6 On/Off Footwear (QC): 6 1=Demonstrate adherence to instructed precautions during ADL tasks. 2=Patient will verbalize/demonstrate understanding of assistive devices/modifications for ADL. 3=Patient will improve strength/tolerance for activity to enable patient to perform ADL's. OT Education/Plan Problem List/Assessment Assessment: Decreased Activ Tolerance, Decreased UE Strength, Impaired Funct Balance, Impaired Self-Care Skills Discharge Recommendations Plan/Recommendations: Continue POC Treatment Plan/Plan of Care Patient would benefit from OT for education, treatment and training to promote independence in ADL's, mobility, safety and/or upper extremity function for ADL's. Plan of Care: ADL Retraining, Cognitive Retraining, Concurrent Therapy, Functional Mobility, Group Exercise/Act as Ind, UE Funct Exercise/Act Treatment Duration: Mar 08, 2023 Frequency: At least 5 of 7 days/Wk (IRF) Estimated Hrs Per Day: 1.5 hours per day Rehab Potential: Good Time Start Time: 11:30 Stop Time: 12:05 DATE: Feb 17, 2023 Total Time Billed (hr/min): 35 Billed Treatment Time 1 visit-ADL 2 (35 min) BENEDICTO RODARTE Feb 17, 2023 12:06
[2023-02-17] MEDS: IBUPROFEN TABLET 200 MG TAB PO PRN ×2 (12:55→20:37)
--- NOTE | 2023-02-17 14:09 | ST Cognitive Linguistic Eval ---
Speech Evaluation-General Medical Diagnosis S/P Lt Transmetatarsal Amputation, on 02/16/23 Onset Date: Feb 11, 2023 Therapy Diagnosis Therapy Diagnosis: WNL Cognition Precautions Precautions: Fall Precautions/Isolations: Fall Prevention, Standard Precautions Referral Referring Physician: Dr. Stout Reason for Referral: Evaluation/Treatment Cognitive Screen Medical History Pertinent Medical History: COPD, HTN, PVD Obesity, noncompliance with BiPap, HTN, Hyperlipidemia, Renal lithiasis hx Current History Pt s/p L first metatarsal amputation on 02/16/23 due to acute chronic osteomyelitis with bone exposed on presentation. DM with severe insulin resistance on large amount of regular insulin. Reviewed History: Yes Social History Current Living Status: Children Speech PLF-Current Status Prior Level of Function Pt lives in house with her 8 year old son. Pt completes medication management for herself and her son. Pt states her mother manages her finances. Subjective Pt sitting up in recliner when MECHANICAL INTEGRITY ENGINEER enters room. Pt alert and oriented. Pt pleasant and cooperative throughout evaluation. Language Eval: Auditory Comprehends Simple Yes/No Ques: Functional Follows 1-Step Commands: Functional Language Eval: Verbal Language Completes Spontaneous Greeting: Functional Requests Basic Needs: Functional Expresses Complex Ideas: Functional Objective Cognitive Domain Attention: WNL Memory: WNL Problem Solving: Functional Executive Functions: WNL Visuospatial Skills: WNL Composite Severity Rating: WNL Clock Drawing Severity Rating: WNL Score: 29 Objective Formal/Standardized Tests SLUMS Results /30 Impression Pt receives a score of 29/30 on the SLUMS this date, missing one point on the delayed recall. Pt was able to recall the final word with a verbal prompt. Pt completes medication management task this date using a pill organizer. Pt completes task with 100% accuracy independently. Speech-Plan Patient/Family Goals Patient/Family Goals: Pt's goal is to return home at [facility] following d/c from IRU. Treatment Plan Speech Therapy Treatment Plan: Discontinue ST Pt does not require speech therapy services at this time. Frequency: 1 time per month Estimated Hrs Per Day: Other Rehab Potential: Good Pt/Family Agrees to Plan: Yes Safety Risks/Education Teaching Recipient: Patient Teaching Methods: Discussion Response to Teaching: Verbalize Understanding Education Topics Provided: Pt educated on role of MECHANICAL INTEGRITY ENGINEER, purpose of evaluation, results, and recommendations. Pt receptive and verbalized understanding. Time Speech Therapy Time In: 10:30 Speech Therapy Time Out: 10:55 DATE: Feb 17, 2023 Total Billed Time: 25 Billed Treatment Time S/L Cassidy Thao Speech Therapy Feb 17, 2023 14:09
[2023-02-17] MEDS ORDERED: DICY10CA12 PO (15:36)
[2023-02-17] MEDS ORDERED: CALC-696 PO (15:36)
[2023-02-17] MEDS ORDERED: INSU500I SQ (15:36)
[2023-02-17] MEDS ORDERED: INSU100I23 SQ (15:36)
[2023-02-17] MEDS ORDERED: PANT40TA52 PO (15:36)
[2023-02-17] MEDS ORDERED: AMIT50TA3 PO (15:36)
[2023-02-17] MEDS ORDERED: HYDR-3923 PO (15:36)
[2023-02-17] MEDS ORDERED: DICYCLOMINE 10 MG (BENTYL) CAP PO PRN (15:45)
[2023-02-17] MEDS ORDERED: TROUGH ORDER-PHARMACY XX ONE (17:00)
[2023-02-17 19:57] VITALS: BP 143/72
[2023-02-17] MEDS: AMITRIPTYLINE 25 MG (ELAVIL) TAB PO PRN (20:34)
[2023-02-17] MEDS: MELATONIN 10 MG TABLET PO SCH (20:35)
[2023-02-17] MEDS: amLODIPine 10 MG (NORVASC) TAB PO SCH (20:37)
[2023-02-17] MEDS: ONDANSETRON 4 MG (ZOFRAN) ORAL DISSOLVE TAB PO PRN (21:13)
[2023-02-18] MEDS: RT-ALBUTEROL HFA 8.5 GM INHALER IH SCH ×4 (02:44→21:46)
[2023-02-18] MEDS: VANCOMYCIN 1250MG/250ML PREMIX 250 ML IV SCH ×2 (05:50→17:24)
[2023-02-18] MEDS: FLUTICASONE/VILANTEROL 100 MCG 14'S (BREO) IH SCH (06:50)
[2023-02-18] MEDS: inSUlin (REGULAR) HUMAN 1 UNIT/0.01 ML (CHARGE PER UNIT) SC SCH ×3 (06:54→17:24)
[2023-02-18 08:00] VITALS: BP 109/52
--- NOTE | 2023-02-18 08:04 | Physical Therapy Daily Note ---
PT Daily Note-Current Subjective Pt reports she is doing well today and is agreeable to PT. Pt reports sleeping well and reported L foot pain at 2/10. Pain Numeric Pain Scale: 2 Location: Left Location Body Site: Foot Section J - Health Conditions 1. Rarely or not at all 2. Occasionally 3. Frequently 4. Almost constantly 8. Unable to answer Pain Effect on Sleep: 1 Pain Interference with Therapy: 2 Pain Interference w/Day-to-Day: 2 Transfers SCALE: Activities may be completed with or without assistive devices. 7-Piaxbqcrug-uxsyhxj completes the activity by him/herself with no assistance from a helper. 5-Set-up or Clean-up Assistance-helper sets up or cleans up; patient completes activity. [place] assists only prior to or following the activity. 4-Supervision or Touching Assistance-helper provides verbal cues and/or touching/steadying and/or contact guard assistance as patient completes activity. Assistance may be provided throughout the activity or intermittently. 3-Partial/Moderate Assistance-helper does LESS THAN HALF the effort. [place] lifts, holds or supports trunk or limbs, but provides less than half the effort. 2-Substantial/Maximal Assistance-helper does MORE THAN HALF the effort. [place] lifts or holds trunk or limbs and provides more than half the effort. 3-Rtbphkwwc-oviifl does ALL the effort. Patient does none of the effort to complete the activity. Or, the assistance of 2 or more helpers is required for the patient to complete the activity. If activity was not attempted, code reason: 7-Patient Refused. 9-Not Applicable-not attempted and the patient did not perform the activity before the current illness, exacerbation or injury. 10-Not Attempted due to Environmental Limitations-(lack of equipment, weather restraints, etc.). 88-Not Attempted due to Medical Conditions or Safety Concerns. Roll Left & Right (QC): 4 Sit to Lying (QC): 4 Lying to Sitting/Side of Bed(Q: 4 Sit to Stand (QC): 4 Chair/Atw-yw-Cbrji Xfer(QC): 4 Weight Bearing Right Lower Extremity: Right Full Weight Bearing Left Lower Extremity: Left Non Weight Bearing Gait Training Does the Patient Walk?: Yes Distance: 15ft Walk 10 feet (QC): 4 Walk 50 ft with 2 Turns(QC): 88 Walk 150 ft (QC): 88 Walking 10ft/uneven surface-QC: 88 Gait Persons Needed: 1 Gait Assistive Device: FWW Wheelchair Training Does the Pt Use a Wheelchair?: Yes Wheel 50 ft with 2 turns (QC): 4 Wheel 150 ft (QC): 4 Type of Wheelchair: Manual Treatments Pt completed supine B LE Ther Ex x 15 reps each. Pt completed seated B LE Ther Ex x 15 reps each with the red Tband. Pt completed all aspects of bed mobility with SBA. Pt completed functional transfers from various surfaces with CGA. Pt ambulated 10ft, 8ft, 15ft, and 12ft with the FWW, CGA, and w/c follow. Pt completed w/c mobility x 250ft with SBA. Pt required short rest breaks throughout treatment session. Pt in bed with call light in reach and nurse present, upon completion of treatment session. Assessment Current Status: Good Progress Pt tolerated PT well, with good effort. Required frequent rest breaks throughout treatment session. PT Financial Systems Manager Goals Financial Systems Manager Goals PT Usp Goals Time Frame: Feb 28, 2023 Roll Left & Right (QC): 6 (Pt will be Ind with bed mobility ) Sit to Lying (QC): 6 (Pt will be Ind with bed mobility ) Lying-Sitting on Side/Bed(QC): 6 (Pt will be Ind with bed mobility ) Sit to Stand (QC): 6 (Pt will be Ind with transfers ) Chair/Gus-fj-Srhkc Xfer(QC): 6 (Pt will be Ind with transfers ) Toilet Transfer (QC): 6 (Pt will be Ind with transfers ) Car Transfer (QC): 6 (Pt will be Ind with transfers ) Does the Patient Walk: Yes Walk 10 feet (QC): 4 (Pt will be SBA for walking and stairs and abide by NWB to the L LE. ) Walk 50ft with 2 Turns (QC): 4 (Pt will be SBA for walking and stairs and abide by NWB to the L LE. ) Walk 150 ft (QC): 4 (Pt will be SBA for walking and stairs and abide by NWB to the L LE. ) Walking 10ft on Uneven Surface: 4 (Pt will be SBA for walking and stairs and abide by NWB to the L LE. ) 1 Step (curb) (QC): 4 (Pt will be SBA for walking and stairs and abide by NWB to the L LE. ) 4 Steps (QC): 4 (Pt will be SBA for walking and stairs and abide by NWB to the L LE. ) 12 Steps (QC): 4 (Pt will be SBA for walking and stairs and abide by NWB to the L LE. ) Picking up an Object (QC): 6 (Ind with standing/picking up an object ) Does the Pt use WC or Scooter?: Yes Wheel 50 feet with 2 turns (QC: 6 (Ind with w/c ) Type: Manual Wheel 150 feet: 6 (Ind with w/c ) Type: Manual PT Plan Problem List Problem List: Activity Tolerance, Functional Strength, Safety, Balance, Gait, Transfer, Bed Mobility Treatment/Plan Treatment Plan: Continue Plan of Care Treatment Plan: Bed Mobility, Concurrent Therapy, Education, Functional Activity [place], Functional Strength, Group Therapy, Gait, Safety, Therapeutic Exercise, Transfers Treatment Duration: Feb 28, 2023 Frequency: At least 5 of 7 days/Wk (IRF) Estimated Hrs Per Day: 1.5 hours per day Patient and/or Family Agrees t: Yes Safety Risks/Education Patient Education: Gait Training, Transfer Techniques, Issued Written HEP, Reviewed Precautions, Correct Positioning, W/C Management, Safety Issues Teaching Recipient: Patient Teaching Methods: Demonstration, Discussion Response to Teaching: Verbalize Understanding, Return Demonstration, Reinforcement Needed Discharge Recommendations Therapy Discharge Recommendati: Home & Family Equpiment Recommendations-D/C: Standard Bedside Commode, Manual Wheelchair Discharge Status/Home Program cont per POC Barriers to Progress NWB L LE Target Placement home with family support Time Time In: 800 Time Out: 930 DATE: Feb 18, 2023 Total Billed Treatment Time: 90 Total Billed Treatment 90 min 1 visit GT x 2 FA x 2 EX x 2 RJ CORODN PT Feb 18, 2023 08:04
[2023-02-18] MEDS: hydrOXYzine (ATARAX) 10 MG TAB PO SCH ×3 (09:17→21:05)
[2023-02-18] MEDS: DULoxetine 20 MG (CYMBALTA) CAP PO SCH ×2 (09:17→21:14)
[2023-02-18] MEDS: KCL 20 MEQ TAB (K-DUR) PO SCH (09:17)
[2023-02-18] MEDS: metFORMIN XR 500 MG (GLUCOPHAGE XR) TAB PO SCH ×2 (09:17→21:14)
[2023-02-18] MEDS: polyethylene glycoL POWDER 17 GM (MIRALAX) PACK PO SCH ×2 (09:17→21:07)
[2023-02-18] MEDS: MELOXICAM 7.5 MG (MOBIC) TABLET PO SCH (09:17)
[2023-02-18] MEDS: MULTIVIT W/MINERALS TAB (THERAGRAN M) PO SCH (09:17)
[2023-02-18] MEDS: GABAPENTIN 400 MG (NEURONTIN) CAP PO SCH ×3 (09:18→21:14)
[2023-02-18] MEDS: DOCUSATE SODIUM 100 MG (COLACE) CAP PO SCH ×2 (09:18→21:06)
[2023-02-18] MEDS: SENNA W/DOCUSATE (SENOKOT S) TABLET PO SCH ×2 (09:18→21:06)
[2023-02-18] MEDS: LOSARTAN 100 MG (COZAAR) TABLET PO SCH (09:18)
[2023-02-18] MEDS: FUROSEMIDE 40 MG (LASIX) TAB PO SCH (09:18)
[2023-02-18] MEDS: FAMOTIDINE 20 MG (PEPCID) TABLET PO SCH ×2 (09:18→21:06)
[2023-02-18] MEDS: OXYBUTYNIN (DITROPAN) 5 MG TAB PO SCH ×2 (09:18→21:06)
[2023-02-18] MEDS: PANTOPRAZOLE 40 MG (PROTONIX) TAB PO SCH ×2 (09:18→21:14)
[2023-02-18] MEDS: ENOXAPARIN 40 MG/0.4 ML (LOVENOX) SYR SC SCH ×2 (09:19→21:16)
--- NOTE | 2023-02-18 10:17 | PM&R Progress Note ---
Subjective HPI/CC On Admission Date Seen by Provider: Feb 18, 2023 Time Seen by Provider: 10:00 Subjective/Events-last exam 02/18/2023: Patient doing a lot better Bladder scanning maintained Pain is pretty well controlled 02/17/2023: Patient doing really well Thinks she is retaining urine so we will BladderScan Oxycodone makes her nauseated requesting ibuprofen Labs reviewed Review of Systems General: Fatigue, Malaise Musculoskeletal: foot pain Objective Exam Vital Signs Vital Signs Date Time Temp Pulse Resp B/P (MAP) Pulse Ox O2 Delivery O2 Flow Rate FiO2 02/18/23 19:58 36.4 83 20 150/72 (98) 96 Nasal Cannula 3.00 Capillary Refill : General Appearance: No Apparent Distress, WD/WN, Chronically ill, Obese HEENT: PERRL/EOMI, Normal ENT Inspection, Pharynx Normal Neck: Full Range of Motion, Normal Inspection, Non Tender, Supple, Carotid Bruit Respiratory: Chest Non Tender, Lungs Clear, Normal Breath Sounds, No Accessory Muscle Use, No Respiratory Distress Cardiovascular: Regular Rate, Rhythm, No Edema, No Gallop, No JVD, No Murmur, Normal Peripheral Pulses Gastrointestinal: Normal Bowel Sounds, No Organomegaly, No Pulsatile Mass, Non Tender, Soft Back: Normal Inspection, No CVA Tenderness, No Vertebral Tenderness Extremity: Normal Capillary Refill, Normal Inspection, Normal Range of Motion, Non Tender, No Calf Tenderness, No Pedal Edema Neurologic/Psychiatric: Alert, Oriented x3, No Motor/Sensory Deficits, industrial court magistrate II- XII Norm as Tested, Abnormal Gait, Depressed Affect, Motor Weakness (Left foot and leg due to pain and amputation) Skin: Normal Color, Warm/Dry, Other (left foot dressing intact) Lymphatic: No Adenopathy Results/Procedures Lab Patient resulted labs reviewed. FIM Transfers Therapy Code Descriptions/Definitions Functional [place] Measure: 0=Not Assessed/NA 4=Minimal Assistance 1=Total Assistance 5=Supervision or Setup 2=Maximal Assistance 6=Modified [place] 3=Moderate Assistance 7=Complete IndependenceSCALE: Activities may be completed with or without assistive devices. 8-Exflhuvuda-leigopv completes the activity by him/herself with no assistance from a helper. 5-Set-up or Clean-up Assistance-helper sets up or cleans up; patient completes activity. [place] assists only prior to or following the activity. 4-Supervision or Touching Assistance-helper provides verbal cues and/or touching/steadying and/or contact guard assistance as patient completes activity. Assistance may be provided throughout the activity or intermittently. 3-Partial/Moderate Assistance-helper does LESS THAN HALF the effort. [place] lifts, holds or supports trunk or limbs, but provides less than half the effort. 2-Substantial/Maximal Assistance-helper does MORE THAN HALF the effort. [place] lifts or holds trunk or limbs and provides more than half the effort. 8-Fmhtebccm-rfabqj does ALL the effort. Patient does none of the effort to complete the activity. Or, the assistance of 2 or more helpers is required for the patient to complete the activity. If activity was not attempted, code reason: 7-Patient Refused. 9-Not Applicable-not attempted and the patient did not perform the activity before the current illness, exacerbation or injury. 10-Not Attempted due to Environmental Limitations-(lack of equipment, weather restraints, etc.). 88-Not Attempted due to Medical Conditions or Safety Concerns. Roll Left to Right (QC): 4 Sit to Lying (QC): 4 Sit to Stand (QC): 4 Chair/Vrq-ff-Lqgfh Xfer(QC): 4 Car Transfer (QC): 88 Gait Training Does the Patient Walk?: Yes Distance: 15ft Walk 10 feet (QC): 4 Walk 50 ft with 2 Turns(QC): 88 Walk 150 ft (QC): 88 Walking 10ft/uneven surface-QC: 88 Gait Persons Needed: 1 Gait Assistive Device: FWW Wheelchair Training Does the Pt Use a Wheelchair?: Yes Distance: 150ft Wheel 50 ft with 2 turns (QC): 4 Wheel 150 ft (QC): 4 Type of Wheelchair: Manual Stair Training 1 Step (curb) (QC): 88 4 Steps (QC): 88 12 Steps (QC): 88 Balance Picking up an Object (QC): 4 (CGA) ADL-Treatment Eating (QC): 6 Oral Hygiene (QC): 6 Shower/Bathe Self (QC): 4 (SBA sitting on bench in walk in shower w/ one vertical and one horz GB w/ HHSH) Upper Body Dressing (QC): 5 Lower Body Dressing (QC): 3 (uses figure 4 technique crossing foot over) On/Off Footwear (QC): 4 Toileting Hygiene (QC): 4 Assessment/Plan Assessment and Plan Assess & Plan/Chief Complaint Assessment: 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
--- NOTE | 2023-02-18 10:18 | Individualized Plan of Care ---
Individualized Plan of Care Rehab Nursing IPOC Order Admission Date Feb 16, 2023 at 10:37 Current Orders Orders Admission Arrival Bed Request (02/16/23 10:37) Admission Order(Inpt,Obs,Sdc) (02/16/23 10:58) Vital Signs: Per Unit Policy ( 08,16,00 (02/16/23 10:58) Guru Quezada 09,21 (02/16/23 10:58) Sequential Compression Device (02/16/23 10:58) Interactive Media Marketing Director-Inpt Rehab Con (02/16/23 10:58) Rehab Nursing Orders-Ipoc (02/16/23 10:58) Physical Therapy Rehab Orders (02/16/23 10:58) Occupational Therapy Rehab Ord (02/16/23 10:58) Speech Therapy Rehab Orders (02/16/23 10:58) Cbc With Automated Diff (02/17/23 06:00) Comprehensive Metabolic Panel (02/17/23 06:00) Precautions (Aru) (02/16/23 10:58) Rehab-Intensity Of Therapy (02/16/23 10:58) Alprazolam Tablet (Xanax Tablet) (02/16/23 11:00) Calcium Carbonate Chew Tablet (Antacid C (02/16/23 11:00) Diphenhydramine Tablet (Benadryl Tablet) (02/16/23 11:00) Docusate Sodium Capsule (Colace Capsule) (02/16/23 21:00) Docusate Sodium Capsule (Colace Capsule) (02/16/23 11:00) Bisacodyl Suppository (Dulcolax Supposit (02/16/23 11:00) Lactulose Oral Solution (Enulose Oral So (02/16/23 11:00) Na Phos/Na Biphos Enema (Fleet Enema Angel (02/16/23 11:00) Guaifenesin/Codeine Syrup (Robitussin Ac (02/16/23 11:00) Loperamide Tablet (Imodium Tablet) (02/16/23 11:00) Melatonin Tablet (Melatonin Tablet) (02/16/23 11:00) Polyethylene Glycol Powder Pkt (Miralax (02/16/23 21:00) Ondansetron Oral Dissolve Tab (Zofran (02/16/23 11:00) Senna S Tablet (Senokot S Tablet) (02/16/23 21:00) Acetaminophen Tablet/Caplet (Tylenol T (02/16/23 11:00) Enoxaparin Injection (Lovenox Injection) (02/16/23 21:00) Code/Resuscitation (02/16/23 10:58) Sequential Compression Device ONCE (02/16/23 10:58) Initiate Admission Nursing Pro .admission (02/16/23 10:58) Cho 60g/M 1snack (16-2000 Stepan) (02/16/23 Lunch) Pastoral Consult (02/16/23 12:13) Amlodipine Tablet (Norvasc Tablet) (02/16/23 21:00) Atorvastatin Tablet (Lipitor Tablet) (02/16/23 21:00) Dicyclomine Capsule (Bentyl Capsule) (02/16/23 21:00) Fluticasone/Vilanterol 100 Mcg (Breo Ell (02/17/23 08:00) Furosemide Tablet (Lasix Tablet) (02/17/23 09:00) Hydroxyzine Oral (Atarax Tablet) (02/16/23 21:00) Albuterol/Ipra Inhalation Soln (Duoneb I (02/16/23 15:45) Losartan Tablet (Cozaar Tablet) (02/17/23 09:00) Meclizine Tablet (Antivert Tablet) (02/16/23 16:00) Meloxicam Tablet (Mobic Tablet) (02/17/23 09:00) Metformin Xr Tablet (Glucophage Xr Table (02/16/23 21:00) Metoprolol Succinate (Xl) Tab (Toprol Xl (02/17/23 09:00) Tizanidine Tablet (Zanaflex Tablet) (02/16/23 21:00) Tizanidine Tablet (Zanaflex Tablet) (02/16/23 15:45) Amitriptyline Tablet (Elavil Tablet) (02/16/23 21:00) Duloxetine Capsule (Cymbalta Capsule) (02/16/23 21:00) Famotidine Tablet (Pepcid Tablet) (02/16/23 21:00) Gabapentin Capsule/Tablet (Neurontin Cap (02/16/23 21:00) Hydroxyzine Cap/Tab (Vistaril) (02/16/23 21:00) (Nf) Insulin Lispro (Insulin Lispro Kwik (02/16/23 15:45) Melatonin Tablet (Melatonin Tablet) (02/16/23 21:00) Therapeutic Multivitamin Tab (Vitamins, (02/17/23 09:00) Oxybutynin Tablet (Ditropan Tablet) (02/16/23 21:00) Pantoprazole Tablet (Protonix Tablet) (02/16/23 21:00) Svn Small Volume Nebulizer (02/16/23 15:34) Vancomycin 1250mg/250ml Premix (Vancomyc (02/16/23 18:00) Insulin (Regular) Human (Novolin R (Per (02/16/23 17:00) Oxycodone Immediate Rel Tablet (Oxyir Ta (02/16/23 15:45) Ondansetron Injection (Zofran Injectio (02/16/23 15:45) Albuterol Inhaler (Albuterol) (02/16/23 21:00) Potassium Chloride (Tablet) (K Dur Table (02/17/23 09:00) Nursing Communication (Order) (02/16/23 18:58) Trough Order (Trough Order-Pharmacy Orde (02/17/23 17:00) Vancomycin,Trough (02/17/23 17:00) Meclizine Tablet (Antivert Tablet) (02/17/23 10:15) Bladder Scan-Straight Cath-Pos (02/17/23 10:14) Ibuprofen Tablet (Motrin Tablet) (02/17/23 12:15) Patient Visit (02/17/23 ) Pt Eval High Complexity (02/17/23 ) Exercise Therap, Ea 15 Min (02/17/23 ) Functional Activities, Ea 15 (02/17/23 ) Patient Visit (02/17/23 ) Speech Sound Lang Comp (02/17/23 ) Amitriptyline Tablet (Elavil Tablet) (02/17/23 15:45) Dicyclomine Capsule (Bentyl Capsule) (02/17/23 15:45) Insulin (Regular) Human (Novolin R (Per (02/18/23 07:00) Hydralazine Tablet (Apresoline Tablet) (02/18/23 12:15) Patient Visit (02/18/23 ) Gait Training, Ea 15 Min (02/18/23 ) Functional Activities, Ea 15 (02/18/23 ) Exercise Therap, Ea 15 Min (02/18/23 ) Dressing Order (Intervention) DAILY (02/18/23 15:26) Dressing Order (Intervention) DAILY (02/18/23 15:41) Rehab Nursing Orders: Ongoing Assess. of Function Status, Bladder Management, Bladder Scan, Bladder Training, Bowel Management, Bowel Training, Disease Management & Educaiton, DVT Prophylaxis, Fall Prevention, Fluid/Electrolyte/Nu trition Mgmt, Infection Prevention, Medication Management & Education, Management of Risks & Complications, Management of Skin Intergrity, Nutrition Management, Pain Management, Patient/Family Support, Safety Management, Weight Bearing Precaution, Wound Management Intensity of Therapy to be met Patient to be seen: Min.3h per day/5 of 7d PT IPOC Problem List: Activity Tolerance, Functional Strength, Safety, Balance, Gait, Transfer, Bed Mobility Treatment Plan: Continue Plan of Care Bed Mobility, Concurrent Therapy, Education, Functional Activity [place], Functional Strength, Group Therapy, Gait, Safety, Therapeutic Exercise, Transfers Treatment Duration: Feb 28, 2023 Frequency: At least 5 of 7 days/Wk (IRF) Estimated Hrs Per Day: 1.5 hours per day OT IPOC Problems: Decreased Activ Tolerance, Decreased UE Strength, Impaired Funct Balance, Impaired Self-Care Skills OT Treatment, Training and Edu: Yes Plan of Care: ADL Retraining, Cognitive Retraining, Concurrent Therapy, Functional Mobility, Group Exercise/Act as Ind, UE Funct Exercise/Act Treatment Duration: Mar 08, 2023 Frequency: At least 5 of 7 days/Wk (IRF) Estimated Hrs Per Day: 1.[address] IPOC Speech Therapy Treatment Plan: Discontinue ST Treatment Duration: Feb 17, 2023 Frequency: 1 time per month Estimated Hrs Per Day: Other Interactive Media Marketing Director/Case Mgmt Interactive Media Marketing Director/Case Managemen: Discharge Planning Dietitian/Drivematic Machine Operator Dietitian/Drivematic Machine Operator to monitor nutritional status and make changes and/or recommendations as needed and work with speech pathology on dietary upgrades as the occur. Physician IPOC Medical Issues being managed closely and that require the 24 hour availability of a physician: Recent metatarsal amputation with oyr-om-[id number] diabetes with labile hypertension will require close monitoring for any decompensation risk Medical Issues: Bowel/Bladder Function, DVT Prophylaxis, Falls Precautions, Fluid/Electrolyte/Nutrition Balance, Infection Protection, Pain Management, Weight Bearing Precautions, Wound Care Brief Synthesis of Preadmission Screen, Post-Admission Evaluation, and Therapy Evaluations: PT and OT will focus on regaining function with use of assistive devices in order to increase independence and stamina and ultimately return back home Medical Prognosis: Fair Anticipated Length of Stay: 7 days KRISTINA HERCULES DO Feb 18, 2023 10:17
[2023-02-18] MEDS ORDERED: hydrALAZINE (APRESOLINE) 25 MG TAB PO PRN (12:15)
--- NOTE | 2023-02-18 12:52 | Occupational Ther Daily Note ---
OT Current Status-Daily Note Subjective Pt alert, sitting on BSC. Pt agrees to therapy. No c/o pain. Pt fatigues very easily and requires multiple recovery breaks. Mental Status/Objective Patient Orientation: Person, Place, Time, Situation Attachments: IV, Oxygen ADL-Treatment Pt agrees to shower. CGA for transfer from BSC to w/c. Pt gathered all clothing at w/c level then propelled w/c to bathroom with min A for corners. Min A for transfer into shower from w/c to shower bench. Pt completed shower with set up, sitting 100% of the time on shower bench using grabbars and hand held shower. Pt threaded jumper and underwear over feet by self then CGA for stabilization while hiking pants over hips. Pt independent donning/doffing socks. Pt completed oral care while in shower. Therapy Code Descriptions/Definitions Functional [place] Measure: 0=Not Assessed/NA 4=Minimal Assistance 1=Total Assistance 5=Supervision or Setup 2=Maximal Assistance 6=Modified [place] 3=Moderate Assistance 7=Complete IndependenceSCALE: Activities may be completed with or without assistive devices. 1-Xxhurzuksh-tahyypj completes the activity by him/herself with no assistance from a helper. 5-Set-up or Clean-up Assistance-helper sets up or cleans up; patient completes activity. Many assists only prior to or following the activity. 4-Supervision or Touching Assistance-helper provides verbal cues and/or touching/steadying and/or contact guard assistance as patient completes activity. Assistance may be provided throughout the activity or intermittently. 3-Partial/Moderate Assistance-helper does LESS THAN HALF the effort. Many lifts, holds or supports trunk or limbs, but provides less than half the effort. 2-Substantial/Maximal Assistance-helper does MORE THAN HALF the effort. Many lifts or holds trunk or limbs and provides more than half the effort. 8-Bdxfpqgdk-cxsnip does ALL the effort. Patient does none of the effort to complete the activity. Or, the assistance of 2 or more helpers is required for the patient to complete the activity. If activity was not attempted, code reason: 7-Patient Refused. 9-Not Applicable-not attempted and the patient did not perform the activity b efore the current illness, exacerbation or injury. 10-Not Attempted due to Environmental Limitations-(lack of equipment, weather restraints, etc.). 88-Not Attempted due to Medical Conditions or Safety Concerns. Eating (QC): 6 Oral Hygiene (QC): 6 Shower/Bathe Self (QC): 5 Upper Body Dressing (QC): 6 Lower Body Dressing (QC): 4 On/Off Footwear: 6 Toileting Hygiene (QC): 4 Toilet Transfer (QC): 4 Other Treatment Pt given theraband HEP for use when not in therapy and at home. Medium resistance theraband given to complete 6 exercises with skilled instructions for correct technique and modifications when needed. Pt will continue to need cues at this time to complete with correct technique. 1 set 10 reps completed with recovery break between each set. After session, pt sitting in recliner with call light/phone in reach. All needs met in room. OT Short Term Goals Short Term Goals Time Frame: Feb 22, 2023 Eatin Oral hygiene: 6 Upper body dressin OT Snf Goals Snf Goals Acute change in mental status: 0 Inattention: 0 Disorganized thinkin Altered level of consciousness: 0 Eating (QC): 6 Oral Hygiene (QC): 6 Toileting Hygiene (QC): 6 Shower/Bathe Self (QC): 6 Upper Body Dressing (QC): 6 Lower Body Dressing (QC): 6 On/Off Footwear (QC): 6 1=Demonstrate adherence to instructed precautions during ADL tasks. 2=Patient will verbalize/demonstrate understanding of assistive devices/modifications for ADL. 3=Patient will improve strength/tolerance for activity to enable patient to perform ADL's. OT Education/Plan Problem List/Assessment Assessment: Decreased Activ Tolerance, Decreased UE Strength, Impaired Funct Balance, Impaired Self-Care Skills Discharge Recommendations Plan/Recommendations: Continue POC Treatment Plan/Plan of Care Patient would benefit from OT for education, treatment and training to promote independence in ADL's, mobility, safety and/or upper extremity function for ADL's. Plan of Care: ADL Retraining, Cognitive Retraining, Concurrent Therapy, Functional Mobility, Group Exercise/Act as Ind, UE Funct Exercise/Act Treatment Duration: Mar 08, 2023 Frequency: At least 5 of 7 days/Wk (IRF) Estimated Hrs Per Day: 1.5 hours per day Rehab Potential: Good Time Start Time: 10:30 Stop Time: 12:00 DATE: Feb 18, 2023 Total Time Billed (hr/min): 90 Billed Treatment Time 1 visit-ADL 4 (60 min) EX 2 (30 min) BENEDICTO RODARTE Feb 18, 2023 12:52
[2023-02-18] MEDS: ONDANSETRON 4 MG (ZOFRAN) ORAL DISSOLVE TAB PO PRN (14:21)
[2023-02-18 19:58] VITALS: BP 150/72
[2023-02-18] MEDS: amLODIPine 10 MG (NORVASC) TAB PO SCH (21:06)
[2023-02-18] MEDS: MELATONIN 10 MG TABLET PO SCH (21:14)
[2023-02-18] MEDS: AMITRIPTYLINE 25 MG (ELAVIL) TAB PO PRN (21:15)
[2023-02-19] MEDS: RT-ALBUTEROL HFA 8.5 GM INHALER IH SCH ×4 (03:02→20:50)
[2023-02-19] MEDS: VANCOMYCIN 1250MG/250ML PREMIX 250 ML IV SCH ×2 (05:35→17:27)
[2023-02-19] MEDS: inSUlin (REGULAR) HUMAN 1 UNIT/0.01 ML (CHARGE PER UNIT) SC SCH ×3 (06:47→16:25)
[2023-02-19 07:47] VITALS: BP 153/93
[2023-02-19 07:53] VITALS: BP 153/93
--- NOTE | 2023-02-19 08:08 | Physical Therapy Daily Note ---
PT Daily Note-Current Subjective Pt reports she is doing well today and is agreeable to PT. Pt reports sleeping well and reported L foot pain at 2/10 Pain Numeric Pain Scale: 2 Location: Left Location Body Site: Foot Section J - Health Conditions 1. Rarely or not at all 2. Occasionally 3. Frequently 4. Almost constantly 8. Unable to answer Pain Effect on Sleep: 1 Pain Interference with Therapy: 2 Pain Interference w/Day-to-Day: 2 Mental Status Attachments: Oxygen (3L ) Transfers SCALE: Activities may be completed with or without assistive devices. 6-Uxamtbrjfg-frguaik completes the activity by him/herself with no assistance from a helper. 5-Set-up or Clean-up Assistance-helper sets up or cleans up; patient completes activity. [place] assists only prior to or following the activity. 4-Supervision or Touching Assistance-helper provides verbal cues and/or touching/steadying and/or contact guard assistance as patient completes activity. Assistance may be provided throughout the activity or intermittently. 3-Partial/Moderate Assistance-helper does LESS THAN HALF the effort. [place] lifts, holds or supports trunk or limbs, but provides less than half the effort. 2-Substantial/Maximal Assistance-helper does MORE THAN HALF the effort. [place] lifts or holds trunk or limbs and provides more than half the effort. 4-Njfzyttjw-xozezb does ALL the effort. Patient does none of the effort to complete the activity. Or, the assistance of 2 or more helpers is required for the patient to complete the activity. If activity was not attempted, code reason: 7-Patient Refused. 9-Not Applicable-not attempted and the patient did not perform the activity before the current illness, exacerbation or injury. 10-Not Attempted due to Environmental Limitations-(lack of equipment, weather restraints, etc.). 88-Not Attempted due to Medical Conditions or Safety Concerns. Roll Left & Right (QC): 4 Sit to Lying (QC): 4 Lying to Sitting/Side of Bed(Q: 4 Sit to Stand (QC): 4 Chair/Tew-we-Dvbwl Xfer(QC): 4 Toilet Transfer (QC): 4 Weight Bearing Right Lower Extremity: Right Full Weight Bearing Left Lower Extremity: Left Non Weight Bearing Gait Training Walk 10 feet (QC): 4 Walk 50 ft with 2 Turns(QC): 88 Walk 150 ft (QC): 88 Walking 10ft/uneven surface-QC: 88 Gait Persons Needed: 1 Gait Assistive Device: FWW Wheelchair Training Does the Pt Use a Wheelchair?: Yes Wheel 50 ft with 2 turns (QC): 4 Wheel 150 ft (QC): 4 Type of Wheelchair: Manual Treatments Pt was finishing up breakfast upon arrival. Nurse arrived to administer meds. Pt completed supine B LE Ther Ex x 15 reps each. Pt completed bed mobility tasks with SBA. Pt completed functional transfers with SBA, including BSC. Pt demo good carry over with safety and proper hand placement. Pt ambulated 16ft x 2, 12ft, and 17ft with the FWW and CGA (w/c follow). Pt able to abide by NWB to the L LE. Pt completed w/c mobility x 325ft with B UE and SBA. Pt required increased rest breaks with w/c mobility. Pt completed seated B LE Ther Ex x 15 reps each with the red Tband. Pt in bed upon completion of tx with call light in reach and all needs met. Assessment Current Status: Good Progress Pt tolerated PT well, with good effort. Required frequent rest breaks throughout treatment session PT First Officer Goals First Officer Goals PT Jail Goals Time Frame: Feb 28, 2023 Roll Left & Right (QC): 6 (Pt will be Ind with bed mobility ) Sit to Lying (QC): 6 (Pt will be Ind with bed mobility ) Lying-Sitting on Side/Bed(QC): 6 (Pt will be Ind with bed mobility ) Sit to Stand (QC): 6 (Pt will be Ind with transfers ) Chair/Tpu-at-Mogns Xfer(QC): 6 (Pt will be Ind with transfers ) Toilet Transfer (QC): 6 (Pt will be Ind with transfers ) Car Transfer (QC): 6 (Pt will be Ind with transfers ) Does the Patient Walk: Yes Walk 10 feet (QC): 4 (Pt will be SBA for walking and stairs and abide by NWB to the L LE. ) Walk 50ft with 2 Turns (QC): 4 (Pt will be SBA for walking and stairs and abide by NWB to the L LE. ) Walk 150 ft (QC): 4 (Pt will be SBA for walking and stairs and abide by NWB to the L LE. ) Walking 10ft on Uneven Surface: 4 (Pt will be SBA for walking and stairs and abide by NWB to the L LE. ) 1 Step (curb) (QC): 4 (Pt will be SBA for walking and stairs and abide by NWB to the L LE. ) 4 Steps (QC): 4 (Pt will be SBA for walking and stairs and abide by NWB to the L LE. ) 12 Steps (QC): 4 (Pt will be SBA for walking and stairs and abide by NWB to the L LE. ) Picking up an Object (QC): 6 (Ind with standing/picking up an object ) Does the Pt use WC or Scooter?: Yes Wheel 50 feet with 2 turns (QC: 6 (Ind with w/c ) Type: Manual Wheel 150 feet: 6 (Ind with w/c ) Type: Manual PT Plan Problem List Problem List: Activity Tolerance, Functional Strength, Safety, Balance, Gait, Transfer, Bed Mobility Treatment/Plan Treatment Plan: Continue Plan of Care Treatment Plan: Bed Mobility, Concurrent Therapy, Education, Functional Ac tivity [place], Functional Strength, Group Therapy, Gait, Safety, Therapeutic Exercise, Transfers Treatment Duration: Feb 28, 2023 Frequency: At least 5 of 7 days/Wk (IRF) Estimated Hrs Per Day: 1.5 hours per day Patient and/or Family Agrees t: Yes Safety Risks/Education Patient Education: Gait Training, Transfer Techniques, Reviewed Precautions, Correct Positioning, W/C Management, Safety Issues Teaching Recipient: Patient Teaching Methods: Demonstration, Discussion Response to Teaching: Verbalize Understanding, Return Demonstration, Reinforcement Needed Discharge Recommendations Therapy Discharge Recommendati: Home & Family Equpiment Recommendations-D/C: Standard Bedside Commode Discharge Status/Home Program Cont per POC Barriers to Progress NWB L LE Target Placement home with family support Time Time In: 800 Time Out: 930 DATE: Feb 19, 2023 Total Billed Treatment Time: 90 Total Billed Treatment 90 min 1 visit EX x 2 GT x 2 FA x 2 RJ CORDON PT Feb 19, 2023 08:08
[2023-02-19] MEDS: MELOXICAM 7.5 MG (MOBIC) TABLET PO SCH (08:20)
[2023-02-19] MEDS: hydrOXYzine (ATARAX) 10 MG TAB PO SCH ×3 (08:20→21:33)
[2023-02-19] MEDS: GABAPENTIN 400 MG (NEURONTIN) CAP PO SCH ×3 (08:20→21:28)
[2023-02-19] MEDS: MULTIVIT W/MINERALS TAB (THERAGRAN M) PO SCH (08:20)
[2023-02-19] MEDS: metFORMIN XR 500 MG (GLUCOPHAGE XR) TAB PO SCH ×2 (08:20→21:27)
[2023-02-19] MEDS: LOSARTAN 100 MG (COZAAR) TABLET PO SCH (08:20)
[2023-02-19] MEDS: SENNA W/DOCUSATE (SENOKOT S) TABLET PO SCH ×2 (08:20→21:29)
[2023-02-19] MEDS: DOCUSATE SODIUM 100 MG (COLACE) CAP PO SCH ×2 (08:20→21:29)
[2023-02-19] MEDS: OXYBUTYNIN (DITROPAN) 5 MG TAB PO SCH ×2 (08:20→21:28)
[2023-02-19] MEDS: DULoxetine 20 MG (CYMBALTA) CAP PO SCH ×2 (08:20→21:30)
[2023-02-19] MEDS: FUROSEMIDE 40 MG (LASIX) TAB PO SCH (08:20)
[2023-02-19] MEDS: PANTOPRAZOLE 40 MG (PROTONIX) TAB PO SCH ×2 (08:20→21:29)
[2023-02-19] MEDS: FAMOTIDINE 20 MG (PEPCID) TABLET PO SCH ×2 (08:20→21:30)
[2023-02-19] MEDS: polyethylene glycoL POWDER 17 GM (MIRALAX) PACK PO SCH ×2 (08:21→21:26)
[2023-02-19] MEDS: ENOXAPARIN 40 MG/0.4 ML (LOVENOX) SYR SC SCH ×2 (08:21→21:31)
[2023-02-19] MEDS: KCL 20 MEQ TAB (K-DUR) PO SCH (08:21)
[2023-02-19] MEDS: FLUTICASONE/VILANTEROL 100 MCG 14'S (BREO) IH SCH (09:58)
--- NOTE | 2023-02-19 10:59 | PM&R Progress Note ---
Subjective HPI/CC On Admission Date Seen by Provider: Feb 19, 2023 Time Seen by Provider: 11:15 Subjective/Events-last exam 02/19/2023: Patient doing pretty well Pain is much better controlled Minimizing oxycodone Bowel regimen maintained 02/18/2023: Patient doing a lot better Bladder scanning maintained Pain is pretty well controlled 02/17/2023: Patient doing really well Thinks she is retaining urine so we will BladderScan Oxycodone makes her nauseated requesting ibuprofen Labs reviewed Review of Systems General: Fatigue, Malaise Objective Exam Vital Signs Vital Signs Date Time Temp Pulse Resp B/P (MAP) Pulse Ox O2 Delivery O2 Flow Rate FiO2 02/19/23 20:50 93 Nasal Cannula 3.00 02/19/23 19:22 36.5 91 20 128/62 (84) Capillary Refill : General Appearance: No Apparent Distress, WD/WN, Chronically ill, Obese HEENT: PERRL/EOMI, Normal ENT Inspection, Pharynx Normal Neck: Full Range of Motion, Normal Inspection, Non Tender, Supple, Carotid Bruit Respiratory: Chest Non Tender, Lungs Clear, Normal Breath Sounds, No Accessory Muscle Use, No Respiratory Distress Cardiovascular: Regular Rate, Rhythm, No Edema, No Gallop, No JVD, No Murmur, Normal Peripheral Pulses Gastrointestinal: Normal Bowel Sounds, No Organomegaly, No Pulsatile Mass, Non Tender, Soft Back: Normal Inspection, No CVA Tenderness, No Vertebral Tenderness Extremity: Normal Capillary Refill, Normal Inspection, Normal Range of Motion, Non Tender, No Calf Tenderness, No Pedal Edema Neurologic/Psychiatric: Alert, Oriented x3, No Motor/Sensory Deficits, rubber insulator II- XII Norm as Tested, Abnormal Gait, Depressed Affect, Motor Weakness (Left foot and leg due to pain and amputation) Skin: Normal Color, Warm/Dry, Other (left foot dressing intact) Lymphatic: No Adenopathy Results/Procedures Lab Patient resulted labs reviewed. FIM Transfers Therapy Code Descriptions/Definitions Functional [place] Measure: 0=Not Assessed/NA 4=Minimal Assistance 1=Total Assistance 5=Supervision or Setup 2=Maximal Assistance 6=Modified [place] 3=Moderate Assistance 7=Complete IndependenceSCALE: Activities may be completed with or without assistive devices. 5-Ulkxrapfub-brgvfuw completes the activity by him/herself with no assistance from a helper. 5-Set-up or Clean-up Assistance-helper sets up or cleans up; patient completes activity. [place] assists only prior to or following the activity. 4-Supervision or Touching Assistance-helper provides verbal cues and/or touching/steadying and/or contact guard assistance as patient completes activity. Assistance may be provided throughout the activity or intermittently. 3-Partial/Moderate Assistance-helper does LESS THAN HALF the effort. [place] lifts, holds or supports trunk or limbs, but provides less than half the effort. 2-Substantial/Maximal Assistance-helper does MORE THAN HALF the effort. [place] lifts or holds trunk or limbs and provides more than half the effort. 9-Tclvixwxr-dvfyqz does ALL the effort. Patient does none of the effort to complete the activity. Or, the assistance of 2 or more helpers is required for the patient to complete the activity. If activity was not attempted, code reason: 7-Patient Refused. 9-Not Applicable-not attempted and the patient did not perform the activity before the current illness, exacerbation or injury. 10-Not Attempted due to Environmental Limitations-(lack of equipment, weather restraints, etc.). 88-Not Attempted due to Medical Conditions or Safety Concerns. Roll Left to Right (QC): 4 Sit to Lying (QC): 4 Sit to Stand (QC): 4 Chair/Woc-ff-Mskjp Xfer(QC): 4 Car Transfer (QC): 88 Gait Training Does the Patient Walk?: Yes Distance: 15ft Walk 10 feet (QC): 4 Walk 50 ft with 2 Turns(QC): 88 Walk 150 ft (QC): 88 Walking 10ft/uneven surface-QC: 88 Gait Persons Needed: 1 Gait Assistive Device: FWW Wheelchair Training Does the Pt Use a Wheelchair?: Yes Distance: 150ft Wheel 50 ft with 2 turns (QC): 4 Wheel 150 ft (QC): 4 Type of Wheelchair: Manual Stair Training 1 Step (curb) (QC): 88 4 Steps (QC): 88 12 Steps (QC): 88 Balance Picking up an Object (QC): 4 (CGA) ADL-Treatment Eating (QC): 6 Oral Hygiene (QC): 6 Shower/Bathe Self (QC): 5 Upper Body Dressing (QC): 6 Lower Body Dressing (QC): 4 On/Off Footwear (QC): 6 Toileting Hygiene (QC): 4 Toilet Transfer (QC): 4 Assessment/Plan Assessment and Plan Assess & Plan/Chief Complaint Assessment: Status post left first metatarsal amputation due to acute on chronic osteomyelitis with bone exposed on presentation Diabetes mellitus with severe insulin resistance on large amount of regular insulin Obesity Noncompliance with BiPAP Hypertension Hyperlipidemia Renal lithiasis history Plan: IV vancomycin Local wound [facility] meds Pain control Bowel regimen 02/17/2023: Add ibuprofen Monitor closely 02/18/2023: Supportive care Continue bladder scanning 02/19/2023: Supportive care Wean down off oxycodone (1) Status post amputation of left foot through metatarsal bone KRISTINA HERCULES DO Feb 19, 2023 10:59
[2023-02-19] MEDS: IBUPROFEN TABLET 200 MG TAB PO PRN ×2 (12:00→22:41)
--- NOTE | 2023-02-19 12:02 | Occupational Ther Daily Note ---
OT Current Status-Daily Note Subjective Pt sleeping in bed, woke to name. Pt agrees to therapy. No c/o pain just fatigue. Mental Status/Objective Patient Orientation: Person, Place, Time, Situation Attachments: [place] Catheter, Oxygen (3L) ADL-Treatment Pt agrees to shower. CGA for transfer from BSC to w/c. Pt gathered all clothing at w/c level then propelled w/c to bathroom. SBA for transfer into shower from w/c to shower bench. Pt completed shower with set up, sitting 100% of the time on shower bench using grabbars and hand held shower. Pt threaded jumper and underwear over feet by self then CGA for stabilization while hiking pants over hips. Pt independent donning/doffing socks. Pt completed oral care while in shower. Pt educated on functional mobility for tub bench transfer, kitchen mobility with/without w/c and toilet transfer. Pt fatigued quickly but was able to complete each task with CGA to SBA for safety. Pt working on side hopping with kitchen counter, completed with CGA. After session, pt lying in bed with call light/phone in reach. All needs met in room. Therapy Code Descriptions/Definitions Functional [place] Measure: 0=Not Assessed/NA 4=Minimal Assistance 1=Total Assistance 5=Supervision or Setup 2=Maximal Assistance 6=Modified [place] 3=Moderate Assistance 7=Complete IndependenceSCALE: Activities may be completed with or without assistive devices. 3-Daxknqshuc-lbdvfwu completes the activity by him/herself with no assistance from a helper. 5-Set-up or Clean-up Assistance-helper sets up or cleans up; patient completes a ctivity. [place] assists only prior to or following the activity. 4-Supervision or Touching Assistance-helper provides verbal cues and/or touching/steadying and/or contact guard assistance as patient completes activity. Assistance may be provided throughout the activity or intermittently. 3-Partial/Moderate Assistance-helper does LESS THAN HALF the effort. [place] lifts, holds or supports trunk or limbs, but provides less than half the effort. 2-Substantial/Maximal Assistance-helper does MORE THAN HALF the effort. [place] lifts or holds trunk or limbs and provides more than half the effort. 5-Vlgiguewx-aetczo does ALL the effort. Patient does none of the effort to complete the activity. Or, the assistance of 2 or more helpers is required for the patient to complete the activity. If activity was not attempted, code reason: 7-Patient Refused. 9-Not Applicable-not attempted and the patient did not perform the activity before the current illness, exacerbation or injury. 10-Not Attempted due to Environmental Limitations-(lack of equipment, weather restraints, etc.). 88-Not Attempted due to Medical Conditions or Safety Concerns. Eating (QC): 6 Oral Hygiene (QC): 6 Shower/Bathe Self (QC): 6 Upper Body Dressing (QC): 6 Lower Body Dressing (QC): 4 On/Off Footwear: 6 Toileting Hygiene (QC): 4 Toilet Transfer (QC): 4 OT Short Term Goals Short Term Goals Time Frame: Feb 22, 2023 Eatin Oral hygiene: 6 Upper body dressin OT [facility] Goals Prevention Specialist Goals Acute change in mental status: 0 Inattention: 0 Disorganized thinkin Altered level of consciousness: 0 Eating (QC): 6 Oral Hygiene (QC): 6 Toileting Hygiene (QC): 6 Shower/Bathe Self (QC): 6 Upper Body Dressing (QC): 6 Lower Body Dressing (QC): 6 On/Off Footwear (QC): 6 1=Demonstrate adherence to instructed precautions during ADL tasks. 2=Patient will verbalize/demonstrate understanding of assistive devices/modifications for ADL. 3=Patient will improve strength/tolerance for activity to enable patient to pe rform ADL's. OT Education/Plan Problem List/Assessment Assessment: Decreased Activ Tolerance, Decreased UE Strength, Impaired Funct Balance, Impaired Self-Care Skills Discharge Recommendations Plan/Recommendations: Continue POC Treatment Plan/Plan of Care Patient would benefit from OT for education, treatment and training to promote independence in ADL's, mobility, safety and/or upper extremity function for ADL's. Plan of Care: ADL Retraining, Cognitive Retraining, Concurrent Therapy, Functional Mobility, Group Exercise/Act as Ind, UE Funct Exercise/Act Treatment Duration: Mar 08, 2023 Frequency: At least 5 of 7 days/Wk (IRF) Estimated Hrs Per Day: 1.5 hours per day Rehab Potential: Good Time Start Time: 10:00 Stop Time: 11:30 DATE: Feb 19, 2023 Total Time Billed (hr/min): 90 Billed Treatment Time 1 visit-ADL 6 (90 min) BENEDICTO RODARTE Feb 19, 2023 12:01
[2023-02-19 19:22] VITALS: BP 128/62
[2023-02-19] MEDS: amLODIPine 10 MG (NORVASC) TAB PO SCH (21:28)
[2023-02-19] MEDS: AMITRIPTYLINE 25 MG (ELAVIL) TAB PO PRN (21:30)
[2023-02-19] MEDS: MELATONIN 10 MG TABLET PO SCH (21:30)
[2023-02-20] MEDS: RT-ALBUTEROL HFA 8.5 GM INHALER IH SCH ×4 (03:02→21:45)
--- NOTE | 2023-02-20 05:39 | PM&R Progress Note ---
Subjective HPI/CC On Admission Date Seen by Provider: Feb 20, 2023 Time Seen by Provider: 12:00 Subjective/Events-last exam 02/20/2023: Patient doing really well Discharge planned on Friday Vancomycin will be discontinued on Friday and started on doxycycline until last dose 03/30/2023 per infectious disease recommendations 02/19/2023: Patient doing pretty well Pain is much better controlled Minimizing oxycodone Bowel regimen maintained 02/18/2023: Patient doing a lot better Bladder scanning maintained Pain is pretty well controlled 02/17/2023: Patient doing really well Thinks she is retaining urine so we will BladderScan Oxycodone makes her nauseated requesting ibuprofen Labs reviewed Review of Systems General: Fatigue, Malaise Objective Exam Vital Signs Vital Signs Date Time Temp Pulse Resp B/P (MAP) Pulse Ox O2 Delivery O2 Flow Rate FiO2 02/21/23 02:37 Nasal Cannula 3.00 02/20/23 21:45 94 02/20/23 19:11 36.0 87 16 137/70 (92) Capillary Refill : General Appearance: No Apparent Distress, WD/WN, Chronically ill, Obese HEENT: PERRL/EOMI, Normal ENT Inspection, Pharynx Normal Neck: Full Range of Motion, Normal Inspection, Non Tender, Supple, Carotid Bruit Respiratory: Chest Non Tender, Lungs Clear, Normal Breath Sounds, No Accessory Muscle Use, No Respiratory Distress Cardiovascular: Regular Rate, Rhythm, No Edema, No Gallop, No JVD, No Murmur, Normal Peripheral Pulses Gastrointestinal: Normal Bowel Sounds, No Organomegaly, No Pulsatile Mass, Non Tender, Soft Back: Normal Inspection, No CVA Tenderness, No Vertebral Tenderness Extremity: Normal Capillary Refill, Normal Inspection, Normal Range of Motion, Non Tender, No Calf Tenderness, No Pedal Edema Neurologic/Psychiatric: Alert, Oriented x3, No Motor/Sensory Deficits, dining room manager II- XII Norm as Tested, Abnormal Gait, Depressed Affect, Motor Weakness (Left foot and leg due to pain and amputation) Skin: Normal Color, Warm/Dry, Other (left foot dressing intact) Lymphatic: No Adenopathy Results/Procedures Lab Patient resulted labs reviewed. FIM Transfers Therapy Code Descriptions/Definitions Functional [place] Measure: 0=Not Assessed/NA 4=Minimal Assistance 1=Total Assistance 5=Supervision or Setup 2=Maximal Assistance 6=Modified [place] 3=Moderate Assistance 7=Complete IndependenceSCALE: Activities may be completed with or without assistive devices. 1-Obccsogrpk-tdomczt completes the activity by him/herself with no assistance from a helper. 5-Set-up or Clean-up Assistance-helper sets up or cleans up; patient completes activity. [place] assists only prior to or following the activity. 4-Supervision or Touching Assistance-helper provides verbal cues and/or touching/steadying and/or contact guard assistance as patient completes activity. Assistance may be provided throughout the activity or intermittently. 3-Partial/Moderate Assistance-helper does LESS THAN HALF the effort. [place] lifts, holds or supports trunk or limbs, but provides less than half the effort. 2-Substantial/Maximal Assistance-helper does MORE THAN HALF the effort. [place] lifts or holds trunk or limbs and provides more than half the effort. 0-Kulexnypu-eiebka does ALL the effort. Patient does none of the effort to complete the activity. Or, the assistance of 2 or more helpers is required for the patient to complete the activity. If activity was not attempted, code reason: 7-Patient Refused. 9-Not Applicable-not attempted and the patient did not perform the activity before the current illness, exacerbation or injury. 10-Not Attempted due to Environmental Limitations-(lack of equipment, weather restraints, etc.). 88-Not Attempted due to Medical Conditions or Safety Concerns. Roll Left to Right (QC): 4 Sit to Lying (QC): 4 Sit to Stand (QC): 4 Chair/Tjp-an-Xjnmy Xfer(QC): 4 Car Transfer (QC): 88 Gait Training Does the Patient Walk?: Yes Distance: 15ft Walk 10 feet (QC): 4 Walk 50 ft with 2 Turns(QC): 88 Walk 150 ft (QC): 88 Walking 10ft/uneven surface-QC: 88 Gait Persons Needed: 1 Gait Assistive Device: FWW Wheelchair Training Does the Pt Use a Wheelchair?: Yes Distance: 150ft Wheel 50 ft with 2 turns (QC): 4 Wheel 150 ft (QC): 4 Type of Wheelchair: Manual Stair Training 1 Step (curb) (QC): 88 4 Steps (QC): 88 12 Steps (QC): 88 Balance Picking up an Object (QC): 4 (CGA) ADL-Treatment Eating (QC): 6 Oral Hygiene (QC): 6 Shower/Bathe Self (QC): 6 Upper Body Dressing (QC): 6 Lower Body Dressing (QC): 4 On/Off Footwear (QC): 6 Toileting Hygiene (QC): 4 Toilet Transfer (QC): 4 Assessment/Plan Assessment and Plan Assess & Plan/Chief Complaint Assessment: Status post left first metatarsal amputation due to acute on chronic osteomyelitis with bone exposed on presentation Diabetes mellitus with severe insulin resistance on large amount of regular insulin Obesity Noncompliance with BiPAP Hypertension Hyperlipidemia Renal lithiasis history Plan: IV vancomycin Local wound shelter meds Pain control Bowel regimen 02/17/2023: Add ibuprofen Monitor closely 02/18/2023: Supportive care Continue bladder scanning 02/19/2023: Supportive care Wean down off oxycodone 02/20/2023: Supportive care Adjustment Of insulin (1) Status post amputation of left foot through metatarsal bone KRISTINA HERCULES DO Feb 20, 2023 05:39
[2023-02-20] MEDS: VANCOMYCIN 1250MG/250ML PREMIX 250 ML IV SCH ×2 (05:47→17:21)
[2023-02-20] MEDS: inSUlin (REGULAR) HUMAN 1 UNIT/0.01 ML (CHARGE PER UNIT) SC SCH ×3 (06:37→16:14)
[2023-02-20 08:00] VITALS: BP 132/62
--- NOTE | 2023-02-20 08:11 | Physical Therapy Daily Note ---
PT Daily Note-Current Subjective Pt asleep upon arrival. Easily awaken and agreeable to PT. Pt denies pain at this time. Pain Numeric Pain Scale: 0-No Pain Location: No Pain Reported Section J - Health Conditions 1. Rarely or not at all 2. Occasionally 3. Frequently 4. Almost constantly 8. Unable to answer Pain Effect on Sleep: 1 Pain Interference with Therapy: 1 Pain Interference w/Day-to-Day: 1 Mental Status Attachments: Oxygen (3L) Transfers SCALE: Activities may be completed with or without assistive devices. 3-Acqontycvt-exohbmw completes the activity by him/herself with no assistance from a helper. 5-Set-up or Clean-up Assistance-helper sets up or cleans up; patient completes activity. [place] assists only prior to or following the activity. 4-Supervision or Touching Assistance-helper provides verbal cues and/or touching/steadying and/or contact guard assistance as patient completes activ ity. Assistance may be provided throughout the activity or intermittently. 3-Partial/Moderate Assistance-helper does LESS THAN HALF the effort. [place] lifts, holds or supports trunk or limbs, but provides less than half the effort. 2-Substantial/Maximal Assistance-helper does MORE THAN HALF the effort. [place] lifts or holds trunk or limbs and provides more than half the effort. 9-Cjdhijhzn-imscrn does ALL the effort. Patient does none of the effort to complete the activity. Or, the assistance of 2 or more helpers is required for the patient to complete the activity. If activity was not attempted, code reason: 7-Patient Refused. 9-Not Applicable-not attempted and the patient did not perform the activity before the current illness, exacerbation or injury. 10-Not Attempted due to Environmental Limitations-(lack of equipment, weather restraints, etc.). 88-Not Attempted due to Medical Conditions or Safety Concerns. Roll Left & Right (QC): 4 Sit to Lying (QC): 4 Lying to Sitting/Side of Bed(Q: 4 Sit to Stand (QC): 4 Chair/Dhs-ov-Elhyn Xfer(QC): 4 Toilet Transfer (QC): 4 Weight Bearing Right Lower Extremity: Right Full Weight Bearing Left Lower Extremity: Left Non Weight Bearing Gait Training Does the Patient Walk?: Yes Distance: 20ft Walk 10 feet (QC): 4 Walk 50 ft with 2 Turns(QC): 88 Walk 150 ft (QC): 88 Walking 10ft/uneven surface-QC: 88 Gait Persons Needed: 1 Gait Assistive Device: FWW Wheelchair Training Does the Pt Use a Wheelchair?: Yes Wheel 50 ft with 2 turns (QC): 4 Wheel 150 ft (QC): 4 Type of Wheelchair: Manual Treatments Pt completed bed mobility tasks with SBA. Pt completed functional transfers with CGA. Pt ambulated 10ft x 2 to/from bathroom with the FWW and CGA. SBA for toilet transfer. Pt ambulated 20ft x 2 with the FWW and CGA (w/c follow). Pt completed w/c mobility x 350ft with SBA/Mod I. Pt completed seated B LE Ther Ex x 15 reps each with the red Tband. Pt cont to require rest breaks, but less rest breaks were required on this date, and with less duration. Pt in bed with call light in reach and all needs met, post tx. Assessment Current Status: Good Progress Pt tolerated PT well with good effort PT [facility] Goals Lines Tender Goals PT [facility] Goals Time Frame: Feb 28, 2023 Roll Left & Right (QC): 6 (Pt will be Ind with bed mobility ) Sit to Lying (QC): 6 (Pt will be Ind with bed mobility ) Lying-Sitting on Side/Bed(QC): 6 (Pt will be Ind with bed mobility ) Sit to Stand (QC): 6 (Pt will be Ind with transfers ) Chair/Jas-nz-Sensa Xfer(QC): 6 (Pt will be Ind with transfers ) Toilet Transfer (QC): 6 (Pt will be Ind with transfers ) Car Transfer (QC): 6 (Pt will be Ind with transfers ) Does the Patient Walk: Yes Walk 10 feet (QC): 4 (Pt will be SBA for walking and stairs and abide by NWB to the L LE. ) Walk 50ft with 2 Turns (QC): 4 (Pt will be SBA for walking and stairs and abide by NWB to the L LE. ) Walk 150 ft (QC): 4 (Pt will be SBA for walking and stairs and abide by NWB to the L LE. ) Walking 10ft on Uneven Surface: 4 (Pt will be SBA for walking and stairs and abide by NWB to the L LE. ) 1 Step (curb) (QC): 4 (Pt will be SBA for walking and stairs and abide by NWB to the L LE. ) 4 Steps (QC): 4 (Pt will be SBA for walking and stairs and abide by NWB to the L LE. ) 12 Steps (QC): 4 (Pt will be SBA for walking and stairs and abide by NWB to the L LE. ) Picking up an Object (QC): 6 (Ind with standing/picking up an object ) Does the Pt use WC or Scooter?: Yes Wheel 50 feet with 2 turns (QC: 6 (Ind with w/c ) Type: Manual Wheel 150 feet: 6 (Ind with w/c ) Type: Manual PT Plan Problem List Problem List: Activity Tolerance, Functional Strength, Safety, Balance, Gait, Transfer, Bed Mobility Treatment/Plan Treatment Plan: Continue Plan of Care Treatment Plan: Bed Mobility, Concurrent Therapy, Education, Functional Activity [place], Functional Strength, Group Therapy, Gait, Safety, Therapeutic Exercise, Transfers Treatment Duration: Feb 28, 2023 Frequency: At least 5 of 7 days/Wk (IRF) Estimated Hrs Per Day: 1.5 hours per day Patient and/or Family Agrees t: Yes Safety Risks/Education Patient Education: Gait Training, Transfer Techniques, Issued Written HEP, Reviewed Precautions, Correct Positioning, W/C Management, Safety Issues Teaching Recipient: Patient Teaching Methods: Demonstration, Discussion Response to Teaching: Verbalize Understanding, Return Demonstration, Reinforcement Needed Discharge Recommendations Therapy Discharge Recommendati: Home & Family Equpiment Recommendations-D/C: Wheelchair Ramp, Shower Chair Discharge Status/Home Program cont per POC Barriers to Progress NWB L LE Target Placement Home with family and OP PT Time Time In: 800 Time Out: 930 DATE: Feb 20, 2023 Total Billed Treatment Time: 90 Total Billed Treatment 90 min 1 visit EX x 2 FA x 2 GT x 2 RJ CORDON PT Feb 20, 2023 08:11
[2023-02-20] MEDS: GABAPENTIN 400 MG (NEURONTIN) CAP PO SCH ×3 (08:42→21:40)
[2023-02-20] MEDS: DULoxetine 20 MG (CYMBALTA) CAP PO SCH ×2 (08:42→21:40)
[2023-02-20] MEDS: KCL 20 MEQ TAB (K-DUR) PO SCH (08:42)
[2023-02-20] MEDS: ENOXAPARIN 40 MG/0.4 ML (LOVENOX) SYR SC SCH ×2 (08:42→21:43)
[2023-02-20] MEDS: hydrOXYzine (ATARAX) 10 MG TAB PO SCH ×3 (08:42→21:41)
[2023-02-20] MEDS: PANTOPRAZOLE 40 MG (PROTONIX) TAB PO SCH ×2 (08:42→21:41)
[2023-02-20] MEDS: MELOXICAM 7.5 MG (MOBIC) TABLET PO SCH (08:42)
[2023-02-20] MEDS: MULTIVIT W/MINERALS TAB (THERAGRAN M) PO SCH (08:43)
[2023-02-20] MEDS: SENNA W/DOCUSATE (SENOKOT S) TABLET PO SCH ×2 (08:43→21:41)
[2023-02-20] MEDS: LOSARTAN 100 MG (COZAAR) TABLET PO SCH (08:43)
[2023-02-20] MEDS: OXYBUTYNIN (DITROPAN) 5 MG TAB PO SCH ×2 (08:43→21:41)
[2023-02-20] MEDS: DOCUSATE SODIUM 100 MG (COLACE) CAP PO SCH ×2 (08:43→21:41)
[2023-02-20] MEDS: FAMOTIDINE 20 MG (PEPCID) TABLET PO SCH ×2 (08:43→21:41)
[2023-02-20] MEDS: FUROSEMIDE 40 MG (LASIX) TAB PO SCH (08:43)
[2023-02-20] MEDS: metFORMIN XR 500 MG (GLUCOPHAGE XR) TAB PO SCH ×2 (08:43→21:41)
[2023-02-20] MEDS: FLUTICASONE/VILANTEROL 100 MCG 14'S (BREO) IH SCH (09:46)
[2023-02-20] MEDS: polyethylene glycoL POWDER 17 GM (MIRALAX) PACK PO SCH ×2 (10:31→21:39)
[2023-02-20] MEDS: POVIDONE (BETADINE) 10% SOLN 240 ML BTL TOP SCH (10:32)
--- NOTE | 2023-02-20 12:59 | Occupational Ther Daily Note ---
OT Current Status-Daily Note Subjective Pt alert, sitting EOB. Pt agrees to therapy. No c/o pain. Mental Status/Objective Patient Orientation: Person, Place, Time, Situation Attachments: IV, Oxygen (3L) ADL-Treatment Pt agrees to shower. SBA for transfer from BSC to w/c. SBA for transfer from w/c to BSC. SBA for toileting. SBA for transfer into shower using FWW. Pt completed shower with set up, sitting 100% of the time on shower bench using grabbars and hand held shower. Pt pants and underwear over feet by self then CGA for stabilization while hiking pants over hips. Independent UBD. Pt independent donning/doffing socks. Pt completed oral care while in shower. Pt completed HEP using medium resistance theraband independently. 1set 15 reps of 6 exercises. After session, pt lying in bed with call light/phone in reach. All needs met in room. Therapy Code Descriptions/Definitions Functional [place] Measure: 0=Not Assessed/NA 4=Minimal Assistance 1=Total Assistance 5=Supervision or Setup 2=Maximal Assistance 6=Modified [place] 3=Moderate Assistance 7=Complete IndependenceSCALE: Activities may be completed with or without assistive devices. 7-Omaaohvuxj-xtwewtq completes the activity by him/herself with no assistance from a helper. 5-Set-up or Clean-up Assistance-helper sets up or cleans up; patient completes activity. [place] assists only prior to or following the activity. 4-Supervision or Touching Assistance-helper provides verbal cues and/or touching/steadying and/or contact guard assistance as patient completes activity. Assistance may be provided throughout the activity or intermittently. 3-Partial/Moderate Assistance-helper does LESS THAN HALF the effort. [place] lifts, holds or supports trunk or limbs, but provides less than half the effort. 2-Substantial/Maximal Assistance-helper does MORE THAN HALF the effort. [place] lifts or holds trunk or limbs and provides more than half the effort. 6-Uzhshuwup-lozrvd does ALL the effort. Patient does none of the effort to complete the activity. Or, the assistance of 2 or more helpers is required for the patient to complete the activity. If activity was not attempted, code reason: 7-Patient Refused. 9-Not Applicable-not attempted and the patient did not perform the activity before the current illness, exacerbation or injury. 10-Not Attempted due to Environmental Limitations-(lack of equipment, weather restraints, etc.). 88-Not Attempted due to Medical Conditions or Safety Concerns. Oral Hygiene (QC): 6 Shower/Bathe Self (QC): 5 Upper Body Dressing (QC): 6 Lower Body Dressing (QC): 4 On/Off Footwear: 6 Toileting Hygiene (QC): 4 Toilet Transfer (QC): 4 OT Short Term Goals Short Term Goals Time Frame: Feb 22, 2023 Eatin Oral hygiene: 6 Upper body dressin OT [facility] Goals [place] Crushing Machine Operator Goals Acute change in mental status: 0 Inattention: 0 Disorganized thinkin Altered level of consciousness: 0 Eating (QC): 6 Oral Hygiene (QC): 6 Toileting Hygiene (QC): 6 Shower/Bathe Self (QC): 6 Upper Body Dressing (QC): 6 Lower Body Dressing (QC): 6 On/Off Footwear (QC): 6 1=Demonstrate adherence to instructed precautions during ADL tasks. 2=Patient will verbalize/demonstrate understanding of assistive devices/modifications for ADL. 3=Patient will improve strength/tolerance for activity to enable patient to perform ADL's. OT Education/Plan Problem List/Assessment Assessment: Decreased Activ Tolerance, Decreased UE Strength, Impaired Funct Balance, Impaired Self-Care Skills Discharge Recommendations Plan/Recommendations: Continue POC Treatment Plan/Plan of Care Patient would benefit from OT for education, treatment and training to promote independence in ADL's, mobility, safety and/or upper extremity function for ADL's. Plan of Care: ADL Retraining, Cognitive Retraining, Concurrent Therapy, Functional Mobility, Group Exercise/Act as Ind, UE Funct Exercise/Act Treatment Duration: Mar 08, 2023 Frequency: At least 5 of 7 days/Wk (IRF) Estimated Hrs Per Day: 1.5 hours per day Rehab Potential: Good Time Start Time: 10:30 Stop Time: 12:00 DATE: Feb 20, 2023 Total Time Billed (hr/min): 90 Billed Treatment Time 1 visit-ADL 5 (80 min) EX 1 (20 min) BENEDICTO RODARTE Feb 20, 2023 12:59
[2023-02-20 19:11] VITALS: BP 137/70
[2023-02-20] MEDS: amLODIPine 10 MG (NORVASC) TAB PO SCH (21:41)
[2023-02-20] MEDS: MELATONIN 10 MG TABLET PO SCH (21:41)
[2023-02-20] MEDS: AMITRIPTYLINE 25 MG (ELAVIL) TAB PO PRN (21:42)
[2023-02-21] MEDS: RT-ALBUTEROL HFA 8.5 GM INHALER IH SCH ×4 (02:37→20:35)
[2023-02-21] MEDS ORDERED: TROUGH ORDER-PHARMACY XX ONE (05:00)
[2023-02-21] MEDS: VANCOMYCIN 1250MG/250ML PREMIX 250 ML IV SCH ×2 (06:02→17:12)
[2023-02-21] MEDS: FLUTICASONE/VILANTEROL 100 MCG 14'S (BREO) IH SCH (06:47)
[2023-02-21] MEDS: inSUlin (REGULAR) HUMAN 1 UNIT/0.01 ML (CHARGE PER UNIT) SC SCH ×3 (07:44→15:53)
[2023-02-21 08:00] VITALS: BP 121/56
--- NOTE | 2023-02-21 08:14 | Physical Therapy Daily Note ---
PT Daily Note-Current Subjective Pt reports she is doing well today and is agreeable to PT. Denies pain. Pain Numeric Pain Scale: 0-No Pain Location: No Pain Reported Section J - Health Conditions 1. Rarely or not at all 2. Occasionally 3. Frequently 4. Almost constantly 8. Unable to answer Pain Effect on Sleep: 1 Pain Interference with Therapy: 1 Pain Interference w/Day-to-Day: 1 Transfers SCALE: Activities may be completed with or without assistive devices. 8-Grqgxzbkek-rtlahro completes the activity by him/herself with no assistance from a helper. 5-Set-up or Clean-up Assistance-helper sets up or cleans up; patient completes activity. [place] assists only prior to or following the activity. 4-Supervision or Touching Assistance-helper provides verbal cues and/or touching/steadying and/or contact guard assistance as patient completes activity. Assistance may be provided throughout the activity or intermittently. 3-Partial/Moderate Assistance-helper does LESS THAN HALF the effort. [place] lifts, holds or supports trunk or limbs, but provides less than half the effort. 2-Substantial/Maximal Assistance-helper does MORE THAN HALF the effort. [place] lifts or holds trunk or limbs and provides more than half the effort. 1-Vkekjteef-rdddnu does ALL the effort. Patient does none of the effort to complete the activity. Or, the assistance of 2 or more helpers is required for the patient to complete the activity. If activity was not attempted, code reason: 7-Patient Refused. 9-Not Applicable-not attempted and the patient did not perform the activity befo re the current illness, exacerbation or injury. 10-Not Attempted due to Environmental Limitations-(lack of equipment, weather re straints, etc.). 88-Not Attempted due to Medical Conditions or Safety Concerns. Roll Left & Right (QC): 6 Sit to Lying (QC): 6 Lying to Sitting/Side of Bed(Q: 6 Sit to Stand (QC): 6 Chair/Gaj-gq-Blsud Xfer(QC): 6 Toilet Transfer (QC): 6 Car Transfer (QC): 6 Weight Bearing Right Lower Extremity: Right Full Weight Bearing Left Lower Extremity: Left Non Weight Bearing Gait Training Does the Patient Walk?: Yes Distance: 30ft Walk 10 feet (QC): 4 Walk 50 ft with 2 Turns(QC): 88 Walk 150 ft (QC): 88 Walking 10ft/uneven surface-QC: 4 Gait Persons Needed: 1 Gait Assistive Device: FWW Wheelchair Training Does the Pt Use a Wheelchair?: Yes Wheel 50 ft with 2 turns (QC): 6 Wheel 150 ft (QC): 6 Type of Wheelchair: Manual Stair Training 1 Step (curb) (QC): 88 4 Steps (QC): 88 12 Steps (QC): 88 Balance Picking up an Object (QC): 6 Special Test Comments [facility] standing balance scale = 4/5 Treatments Pt completed supine B LE Ther Ex x 15 reps each. Pt completed bed mobility task and functional transfers with Mod I. Pt ambulated 30ft with the FWW and CGA/SBA. Pt was unable to complete steps, but was able to ascend/descend a small lip and walk on uneven surfaces x 10ft with the FWW and CGA. Pt completed w/c mobility x 350ft with Mod I. Pt in bed upon completion of PT, with call light in reach and all needs met. Assessment Current Status: Good Progress Pt tolerated PT well with good effort. QCs completed on this date. PT Assistant Athletic Trainer Goals Retirement Goals PT Assistant Athletic Trainer Goals Time Frame: Feb 28, 2023 Roll Left & Right (QC): 6 (Pt will be Ind with bed mobility ) Sit to Lying (QC): 6 (Pt will be Ind with bed mobility ) Lying-Sitting on Side/Bed(QC): 6 (Pt will be Ind with bed mobility ) Sit to Stand (QC): 6 (Pt will be Ind with transfers ) Chair/Mlu-sh-Cqnlc Xfer(QC): 6 (Pt will be Ind with transfers ) Toilet Transfer (QC): 6 (Pt will be Ind with transfers ) Car Transfer (QC): 6 (Pt will be Ind with transfers ) Does the Patient Walk: Yes Walk 10 feet (QC): 4 (Pt will be SBA for walking and stairs and abide by NWB to the L LE. ) Walk 50ft with 2 Turns (QC): 4 (Pt will be SBA for walking and stairs and abide by NWB to the L LE. ) Walk 150 ft (QC): 4 (Pt will be SBA for walking and stairs and abide by NWB to the L LE. ) Walking 10ft on Uneven Surface: 4 (Pt will be SBA for walking and stairs and abide by NWB to the L LE. ) 1 Step (curb) (QC): 4 (Pt will be SBA for walking and stairs and abide by NWB to the L LE. ) 4 Steps (QC): 4 (Pt will be SBA for walking and stairs and abide by NWB to the L LE. ) 12 Steps (QC): 4 (Pt will be SBA for walking and stairs and abide by NWB to the L LE. ) Picking up an Object (QC): 6 (Ind with standing/picking up an object ) Does the Pt use WC or Scooter?: Yes Wheel 50 feet with 2 turns (QC: 6 (Ind with w/c ) Type: Manual Wheel 150 feet: 6 (Ind with w/c ) Type: Manual PT Plan Problem List Problem List: Activity Tolerance, Functional Strength, Safety, Balance, Gait, Transfer, Bed Mobility Treatment/Plan Treatment Plan: Continue Plan of Care Treatment Plan: Bed Mobility, Concurrent Therapy, Education, Functional Activity [place], Functional Strength, Group Therapy, Gait, Safety, Therapeutic Exercise, Transfers Treatment Duration: Feb 28, 2023 Frequency: At least 5 of 7 days/Wk (IRF) Estimated Hrs Per Day: 1.5 hours per day Patient and/or Family Agrees t: Yes Safety Risks/Education Patient Education: Gait Training, Transfer Techniques, Steps, Reviewed Precautions, Correct Positioning, W/C Management, Safety Issues Teaching Recipient: Patient Teaching Methods: Demonstration, Discussion Response to Teaching: Verbalize Understanding, Return Demonstration Discharge Recommendations Therapy Discharge Recommendati: Home & Family Equpiment Recommendations-D/C: None Discharge Status/Home Program Cont per POC Barriers to Progress NWB L LE Target Placement home with family assistance Time Time In: 800 Time Out: 900 DATE: Feb 21, 2023 Total Billed Treatment Time: 60 Total Billed Treatment 60 min 1 visit EX x 1 GT x 1 FA x 2 RJ CORDON PT Feb 21, 2023 08:14
[2023-02-21] MEDS: FAMOTIDINE 20 MG (PEPCID) TABLET PO SCH ×2 (08:33→22:00)
[2023-02-21] MEDS: MULTIVIT W/MINERALS TAB (THERAGRAN M) PO SCH (08:33)
[2023-02-21] MEDS: PANTOPRAZOLE 40 MG (PROTONIX) TAB PO SCH ×2 (08:33→21:59)
[2023-02-21] MEDS: LOSARTAN 100 MG (COZAAR) TABLET PO SCH (08:33)
[2023-02-21] MEDS: polyethylene glycoL POWDER 17 GM (MIRALAX) PACK PO SCH ×2 (08:33→22:00)
[2023-02-21] MEDS: DULoxetine 20 MG (CYMBALTA) CAP PO SCH ×2 (08:33→21:59)
[2023-02-21] MEDS: ENOXAPARIN 40 MG/0.4 ML (LOVENOX) SYR SC SCH ×2 (08:33→22:01)
[2023-02-21] MEDS: metFORMIN XR 500 MG (GLUCOPHAGE XR) TAB PO SCH ×2 (08:33→22:00)
[2023-02-21] MEDS: SENNA W/DOCUSATE (SENOKOT S) TABLET PO SCH ×2 (08:33→22:00)
[2023-02-21] MEDS: KCL 20 MEQ TAB (K-DUR) PO SCH (08:33)
[2023-02-21] MEDS: OXYBUTYNIN (DITROPAN) 5 MG TAB PO SCH ×2 (08:33→22:00)
[2023-02-21] MEDS: MELOXICAM 7.5 MG (MOBIC) TABLET PO SCH (08:34)
[2023-02-21] MEDS: DOCUSATE SODIUM 100 MG (COLACE) CAP PO SCH ×2 (08:34→22:00)
[2023-02-21] MEDS: FUROSEMIDE 40 MG (LASIX) TAB PO SCH (08:34)
[2023-02-21] MEDS: hydrOXYzine (ATARAX) 10 MG TAB PO SCH ×3 (08:34→22:01)
[2023-02-21] MEDS: POVIDONE (BETADINE) 10% SOLN 240 ML BTL TOP SCH (08:34)
[2023-02-21] MEDS: GABAPENTIN 400 MG (NEURONTIN) CAP PO SCH ×3 (08:34→22:00)
--- NOTE | 2023-02-21 11:09 | Occupational Ther Daily Note ---
OT Current Status-Daily Note Subjective Pt sleeping in bed, woke to name. Mother and son present in room. Pt agrees to therapy. Pt c/o pain on area of buttocks, reported to nrsg. Mental Status/Objective Patient Orientation: Person, Place, Time, Situation Attachments: IV, Oxygen ADL-Treatment Pt agrees to shower. Pt utilizes FWW to hop into bathroom and transfer into shower, close SBA. SBA for transfer from BS to w/c. SBA for transfer from w/c to BSC. SBA for toileting. SBA for transfer into shower using FWW. Pt c ompleted shower after covering L foot by self, sitting 100% of the time on shower bench using grabbars and hand held shower. Pt pants and underwear over feet by self then CGA for stabilization while hiking pants over hips. Independent UBD. Pt independent donning/doffing socks. Pt completed oral care while in shower. Pt demonstrates ability to complete eating independently. Af ter session, pt lying in bed with call light/phone in reach. All needs met in room. Therapy Code Descriptions/Definitions Functional [place] Measure: 0=Not Assessed/NA 4=Minimal Assistance 1=Total Assistance 5=Supervision or Setup 2=Maximal Assistance 6=Modified [place] 3=Moderate Assistance 7=Complete IndependenceSCALE: Activities may be completed with or without assistive devices. 1-Xwmnhqhxiy-wkwdout completes the activity by him/herself with no assistance from a helper. 5-Set-up or Clean-up Assistance-helper sets up or cleans up; patient completes activity. [place] assists only prior to or following the activity. 4-Supervision or Touching Assistance-helper provides verbal cues and/or touching/steadying and/or contact guard assistance as patient completes activity. Assistance may be provided throughout the activity or intermittently. 3-Partial/Moderate Assistance-helper does LESS THAN HALF the effort. [place] lifts, holds or supports trunk or limbs, but provides less than half the effort. 2-Substantial/Maximal Assistance-helper does MORE THAN HALF the effort. [place] lifts or holds trunk or limbs and provides more than half the effort. 1-Veuqztxki-pguloe does ALL the effort. Patient does none of the effort to complete the activity. Or, the assistance of 2 or more helpers is required for the patient to complete the activity. If activity was not attempted, code reason: 7-Patient Refused. 9-Not Applicable-not attempted and the patient did not perform the activity before the current illness, exacerbation or injury. 10-Not Attempted due to Environmental Limitations-(lack of equipment, weather restraints, etc.). 88-Not Attempted due to Medical Conditions or Safety Concerns. Eating (QC): 6 Oral Hygiene (QC): 6 Shower/Bathe Self (QC): 6 Upper Body Dressing (QC): 6 Lower Body Dressing (QC): 4 (SBA) On/Off Footwear: 6 Toileting Hygiene (QC): 4 (Cleanses self then SBA for clothing manipulation.) Toilet Transfer (QC): 6 Pt had one LOB during pant hike, pt controlled own sit to w/c. Recommendation to always have chair or sitting surface behind pt while completing clothing manipulation or when off loading/reaching with one hand or another in standing. BIMS CAM BIMS Expression of Ideas and Wants: Without Difficulty Understanding Verbal Content: Understands Brief Interview/Mental Status: Yes IRF EMETERIO BIMS: IRF EMETERIO BIMS Response (Comments) Value Repitition of Three Words Three 3 Recalls Socks Yes, No Cue Required 2 Recalls Blue Yes, No Cue Required 2 Recalls Bed Yes, No Cue Required 2 Year Correct 3 Month Accurate Within 5 Days 2 Day Correct 1 Total 15 Patient Normally Able to Recal: Current Session, Location of own room, Staff Names and faces, That he/she in a hsp Should Staff Asses. Mental St.: No CAM Mental Status Change/Baseline: 0 Inattention: 0 Disorganized thinkin Altered level of consciousness: 0 OT Short Term Goals Short Term Goals Time Frame: Feb 22, 2023 Eatin Oral hygiene: 6 Upper body dressin OT Sql Etl Developer Goals [facility] Goals Acute change in mental status: 0 Inattention: 0 Disorganized thinkin Altered level of consciousness: 0 Eating (QC): 6 (met) Oral Hygiene (QC): 6 (met) Toileting Hygiene (QC): 6 (not met) Shower/Bathe Self (QC): 6 (nte) Upper Body Dressing (QC): 6 (met) Lower Body Dressing (QC): 6 (not met) On/Off Footwear (QC): 6 (met) 1=Demonstrate adherence to instructed precautions during ADL tasks. 2=Patient will verbalize/demonstrate understanding of assistive devices/modifications for ADL. 3=Patient will improve strength/tolerance for activity to enable patient to perform ADL's. OT Education/Plan Problem List/Assessment Assessment: Decreased Activ Tolerance, Decreased UE Strength, Impaired Funct Balance, Impaired Self-Care Skills Discharge Recommendations Plan/Recommendations: Continue POC Treatment Plan/Plan of Care Patient would benefit from OT for education, treatment and training to promote independence in ADL's, mobility, safety and/or upper extremity function for ADL's. Plan of Care: ADL Retraining, Cognitive Retraining, Concurrent Therapy, Functional Mobility, Group Exercise/Act as Ind, UE Funct Exercise/Act Treatment Duration: Mar 08, 2023 Frequency: At least 5 of 7 days/Wk (IRF) Estimated Hrs Per Day: 1.5 hours per day Rehab Potential: Good Time Start Time: 10:30 Stop Time: 11:40 DATE: Feb 21, 2023 Total Time Billed (hr/min): 70 Billed Treatment Time 1 visit-ADL 5 (70 min) BENEDICTO RODARTE Feb 21, 2023 11:09
--- NOTE | 2023-02-21 12:28 | PM&R Progress Note ---
Subjective HPI/CC On Admission Date Seen by Provider: Feb 21, 2023 Time Seen by Provider: 12:30 Subjective/Events-last exam 02/21/2023: Patient doing really well Denies any pain We will discharge tomorrow 02/20/2023: Patient doing really well Discharge planned on Friday Vancomycin will be discontinued on Friday and started on doxycycline until last dose 03/30/2023 per infectious disease recommendations 02/19/2023: Patient doing pretty well Pain is much better controlled Minimizing oxycodone Bowel regimen maintained 02/18/2023: Patient doing a lot better Bladder scanning maintained Pain is pretty well controlled 02/17/2023: Patient doing really well Thinks she is retaining urine so we will BladderScan Oxycodone makes her nauseated requesting ibuprofen Labs reviewed Review of Systems General: Fatigue, Malaise Objective Exam Vital Signs Vital Signs Date Time Temp Pulse Resp B/P (MAP) Pulse Ox O2 Delivery O2 Flow Rate FiO2 02/21/23 15:06 97 Nasal Cannula 3.00 02/21/23 08:00 36.0 90 18 121/56 (77) Capillary Refill : General Appearance: No Apparent Distress, WD/WN, Chronically ill, Obese HEENT: PERRL/EOMI, Normal ENT Inspection, Pharynx Normal Neck: Full Range of Motion, Normal Inspection, Non Tender, Supple, Carotid Bruit Respiratory: Chest Non Tender, Lungs Clear, Normal Breath Sounds, No Accessory Muscle Use, No Respiratory Distress Cardiovascular: Regular Rate, Rhythm, No Edema, No Gallop, No JVD, No Murmur, Normal Peripheral Pulses Gastrointestinal: Normal Bowel Sounds, No Organomegaly, No Pulsatile Mass, Non Tender, Soft Back: Normal Inspection, No CVA Tenderness, No Vertebral Tenderness Extremity: Normal Capillary Refill, Normal Inspection, Normal Range of Motion, Non Tender, No Calf Tenderness, No Pedal Edema Neurologic/Psychiatric: Alert, Oriented x3, No Motor/Sensory Deficits, barber II- XII Norm as Tested, Abnormal Gait, Depressed Affect, Motor Weakness (Left foot and leg due to pain and amputation) Skin: Normal Color, Warm/Dry, Other (left foot dressing intact) Lymphatic: No Adenopathy Results/Procedures Lab Patient resulted labs reviewed. FIM Transfers Therapy Code Descriptions/Definitions Functional [place] Measure: 0=Not Assessed/NA 4=Minimal Assistance 1=Total Assistance 5=Supervision or Setup 2=Maximal Assistance 6=Modified [place] 3=Moderate Assistance 7=Complete IndependenceSCALE: Activities may be completed with or without assistive devices. 6-Cxpubhnuua-waasxqt completes the activity by him/herself with no assistance from a helper. 5-Set-up or Clean-up Assistance-helper sets up or cleans up; patient completes activity. [place] assists only prior to or following the activity. 4-Supervision or Touching Assistance-helper provides verbal cues and/or touching/steadying and/or contact guard assistance as patient completes activity. Assistance may be provided throughout the activity or intermittently. 3-Partial/Moderate Assistance-helper does LESS THAN HALF the effort. [place] lifts, holds or supports trunk or limbs, but provides less than half the effort. 2-Substantial/Maximal Assistance-helper does MORE THAN HALF the effort. [place] lifts or holds trunk or limbs and provides more than half the effort. 1-Isjwsiqdb-xhkqag does ALL the effort. Patient does none of the effort to complete the activity. Or, the assistance of 2 or more helpers is required for the patient to complete the activity. If activity was not attempted, code reason: 7-Patient Refused. 9-Not Applicable-not attempted and the patient did not perform the activity before the current illness, exacerbation or injury. 10-Not Attempted due to Environmental Limitations-(lack of equipment, weather restraints, etc.). 88-Not Attempted due to Medical Conditions or Safety Concerns. Roll Left to Right (QC): 6 Sit to Lying (QC): 6 Sit to Stand (QC): 6 Chair/Kbx-qd-Rqplu Xfer(QC): 6 Car Transfer (QC): 6 Gait Training Does the Patient Walk?: Yes Distance: 30ft Walk 10 feet (QC): 4 Walk 50 ft with 2 Turns(QC): 88 Walk 150 ft (QC): 88 Walking 10ft/uneven surface-QC: 4 Gait Persons Needed: 1 Gait Assistive Device: FWW Wheelchair Training Does the Pt Use a Wheelchair?: Yes Distance: 150ft Wheel 50 ft with 2 turns (QC): 6 Wheel 150 ft (QC): 6 Type of Wheelchair: Manual Stair Training 1 Step (curb) (QC): 88 4 Steps (QC): 88 12 Steps (QC): 88 Balance Picking up an Object (QC): 6 ADL-Treatment Eating (QC): 6 Oral Hygiene (QC): 6 Shower/Bathe Self (QC): 6 Upper Body Dressing (QC): 6 Lower Body Dressing (QC): 4 (SBA) On/Off Footwear (QC): 6 Toileting Hygiene (QC): 4 (Cleanses self then SBA for clothing manipulation.) Toilet Transfer (QC): 6 Assessment/Plan Assessment and Plan Assess & Plan/Chief Complaint Assessment: Status post left first metatarsal amputation due to acute on chronic osteomyelitis with bone exposed on presentation Diabetes mellitus with severe insulin resistance on large amount of regular insulin Obesity Noncompliance with BiPAP Hypertension Hyperlipidemia Renal lithiasis history Plan: IV vancomycin Local wound custodial meds Pain control Bowel regimen 02/17/2023: Add ibuprofen Monitor closely 02/18/2023: Supportive care Continue bladder scanning 02/19/2023: Supportive care Wean down off oxycodone 02/20/2023: Supportive care Adjustment Of insulin 02/21/2023: Discharge home tomorrow (1) Status post amputation of left foot through metatarsal bone KRISTINA HERCULES DO Feb 21, 2023 12:28
[2023-02-21] MEDS ORDERED: DOXY100T2 PO (12:50)
--- NOTE | 2023-02-21 14:20 | Therapy Group Daily Note ---
Therapy Daily Group Note Patient Education Topic Home Safety Exercises LE Seated Exercise, UE Exercise Session Ratio (pt:therapist): 3:1 Goal of Session: Education on ARU Expectations, Home Safety Strategies, UE/LE Strengthing, Use of Adaptive Equipment Goal Met for this Session: Yes Pt Benefit of Group: Contributions to Others, F/U Use of Strategies @Home, Increased Functional Safety, Increased Functional Strength, Improved Cognition, Recognition of Peers, Socialization Other/Notes Pt transported via w/c to therapy gym for OT group. Group consisted of introductions (name, place living, favorite restaurant), socialization, B UE/LE seated exercises and educational topic on home safety/AE. Pt introduced self a ppropriately and actively listened to peers. Pt was able to verbalize understanding of educational topic by answering trivia questions on topic and give personal strategies used at home. Pt able to complete B UE/LE exercises without difficulty. After session, pt sitting EOB with call light/phone in reach. All needs met in room. Start Time: 13:00 Stop Time: 14:00 Total Billed Treatment Time: 60 Total Billed Treatment 1 visit-BENEDICTO MERCER Feb 21, 2023 14:20
[2023-02-21 20:37] VITALS: BP 150/88
[2023-02-21] MEDS: MELATONIN 10 MG TABLET PO SCH (22:00)
[2023-02-21] MEDS: amLODIPine 10 MG (NORVASC) TAB PO SCH (22:00)
[2023-02-21] MEDS: AMITRIPTYLINE 25 MG (ELAVIL) TAB PO PRN (22:00)
[2023-02-22] MEDS: RT-ALBUTEROL HFA 8.5 GM INHALER IH SCH ×2 (02:18→09:49)
[2023-02-22] MEDS: VANCOMYCIN 1250MG/250ML PREMIX 250 ML IV SCH (06:34)
--- NOTE | 2023-02-22 06:39 | Discharge Summary ---
Diagnosis/Chief Complaint Date of Admission Feb 16, 2023 at 10:37 Date of Discharge Discharge Date: Feb 22, 2023 Discharge Diagnosis Assessment: Status post left first metatarsal amputation due to acute on chronic osteomyelitis with bone exposed on presentation Diabetes mellitus with severe insulin resistance on large amount of regular insulin Obesity Noncompliance with BiPAP Hypertension Hyperlipidemia Renal lithiasis history Plan: IV vancomycin Local wound residential meds Pain control Bowel regimen 02/17/2023: Add ibuprofen Monitor closely 02/18/2023: Supportive care Continue bladder scanning 02/19/2023: Supportive care Wean down off oxycodone 02/20/2023: Supportive care Adjustment Of insulin 02/21/2023: Discharge home tomorrow (1) Status post amputation of left foot through metatarsal bone Discharge Summary Discharge Physical Examination Allergies: Coded Allergies: hydrocodone (Unverified Allergy, Severe, Anaphylaxis, 02/16/23) PER PATIENT, TOLERATED OXYCODONE FINE IN PAST 02/16/23 tramadol (Unverified Allergy, Severe, Anaphylaxis, 11/12/22) Sulfa (Sulfonamide Antibiotics) (Verified Allergy, Unknown, Vomiting, 02/16/23) dapagliflozin (Verified Allergy, Unknown, 02/16/23) liraglutide (Verified Allergy, Unknown, 02/16/23) Uncoded Allergies: fresh tomatoes, can eat them cooked (Allergy, Unknown, hives, 02/16/23) fish (Adverse Reaction, Unknown, Nausea/Vomiting, 02/16/23) Vitals & I&Os Vital Signs Date Time Temp Pulse Resp B/P (MAP) Pulse Ox O2 Delivery O2 Flow Rate FiO2 02/22/23 11:46 36.2 89 16 145/71 92 Nasal Cannula 3.00 General Appearance: Alert, Oriented X3, Cooperative Respiratory: Clear to Auscultation Cardiovascular: Regular Rate Hospital Course Was the Problem List Reviewed?: Yes Hospital course: patient had an uneventful course after transferred from OSH following left metatarsal amputation from osteomyelitis with DM OOC. Patient required decrease in insulin due to change of diet inpatient versus home. Pain was controlled and no longer needed narcs for pain. Overall her labs remained stable and was DC home. Labs (last 24 hrs) Laboratory Tests 02/16/23 12:25: Glucometer 130H 02/16/23 15:17: Glucometer 156H 02/16/23 20:00: Glucometer 157H 02/17/23 05:53: White Blood Count 10.2, Red Blood Count 3.30L, Hemoglobin 9.5L, Hematocrit 31L, Mean Corpuscular Volume 93, Mean Corpuscular Hemoglobin 29, Mean Corpuscular Hemoglobin Concent 31L, Red Cell Distribution Width 14.3, Platelet Count 382, Mean Platelet Volume 9.6, Immature Granulocyte % (Auto) 3, Neutrophils (%) (Auto) 75, Lymphocytes (%) (Auto) 15, Monocytes (%) (Auto) 4, Eosinophils (%) (Auto) 2, Basophils (%) (Auto) 1, Neutrophils # (Auto) 7.6, Lymphocytes # (Auto) 1.6, Monocytes # (Auto) 0.4, Eosinophils # (Auto) 0.2, Basophils # (Auto) 0.1, Immature Granulocyte # (Auto) 0.3H, Sodium Level 136, Potassium Level 4.4, Chlo ride Level 95L, Carbon Dioxide Level 33H, Anion Gap 8, Blood Urea Nitrogen 18, Creatinine 0.88, Estimat Glomerular Filtration Rate 84, BUN/Creatinine Ratio 20, Glucose Level 253H, Calcium Level 9.1, Corrected Calcium 9.7, Total Bilirubin 0.3, Aspartate Amino Transf (AST/SGOT) 11, Alanine Aminotransferase (ALT/SGPT) 18, Alkaline Phosphatase 115, Total Protein 6.6, Albumin 3.2 02/17/23 11:00: Glucometer 172H 02/17/23 13:15: Glucometer 149H 02/17/23 15:17: Glucometer 62L 02/17/23 15:45: Glucometer 46*L 02/17/23 16:09: Glucometer 49*L 02/17/23 16:26: Glucometer 57*L 02/17/23 16:55: Glucometer 87 02/17/23 17:20: Vancomycin Level Trough 13.8 02/17/23 18:52: Glucometer 137H 02/17/23 20:35: Glucometer 156H 02/18/23 06:01: Glucometer 299H 02/18/23 11:24: Glucometer 326H 02/18/23 16:06: Glucometer 224H 02/18/23 21:12: Glucometer 241H 02/19/23 05:41: Glucometer 259H 02/19/23 10:49: Glucometer 245H 02/19/23 15:11: Glucometer 187H 02/19/23 20:08: Glucometer 220H 02/20/23 05:27: Glucometer 293H 02/20/23 10:52: Glucometer 238H 02/20/23 15:09: Glucometer 224H 02/21/23 05:00: Vancomycin Level Trough 13.4 02/21/23 05:02: Glucometer 313H 02/21/23 11:43: Glucometer 111H 02/21/23 15:50: Glucometer 68L 02/21/23 16:26: Glucometer 62L 02/21/23 16:50: Glucometer 78 02/21/23 20:36: Glucometer 148H 02/22/23 06:29: Glucometer 313H Pending Labs Laboratory Tests 02/16/23 12:25: Glucometer 130 02/16/23 15:17: Glucometer 156 02/16/23 20:00: Glucometer 157 02/17/23 05:53: White Blood Count 10.2, Red Blood Count 3.30, Hemoglobin 9.5, Hematocrit 31, Mean Corpuscular Volume 93, Mean Corpuscular Hemoglobin 29, Mean Corpuscular Hemoglobin Concent 31, Red Cell Distribution Width 14.3, Platelet Count 382, Mean Platelet Volume 9.6, Immature Granulocyte % (Auto) 3, Neutrophils (%) (Auto) 75, Lymphocytes (%) (Auto) 15, Monocytes (%) (Auto) 4, Eosinophils (%) (Auto) 2, Basophils (%) (Auto) 1, Neutrophils # (Auto) 7.6, Lymphocytes # (Auto) 1.6, Monocytes # (Auto) 0.4, Eosinophils # (Auto) 0.2, Basophils # (Auto) 0.1, Immature Granulocyte # (Auto) 0.3, Sodium Level 136, Potassium Level 4.4, Chloride Level 95, Carbon Dioxide Level 33, Anion Gap 8, Blood Urea Nitrogen 18, Creatinine 0.88, Estimat Glomerular Filtration Rate 84, BUN/Creatinine Ratio 20, Glucose Level 253, Calcium Level 9.1, Corrected Calcium 9.7, Total Bilirubin 0.3, Aspartate Amino Transf (AST/SGOT) 11, Alanine Aminotransferase (ALT/SGPT) 18, Alkaline Phosphatase 115, Total Protein 6.6, Albumin 3.2 02/17/23 11:00: Glucometer 172 02/17/23 13:15: Glucometer 149 02/17/23 15:17: Glucometer 62 02/17/23 15:45: Glucometer 46 02/17/23 16:09: Glucometer 49 02/17/23 16:26: Glucometer 57 02/17/23 16:55: Glucometer 87 02/17/23 17:20: Vancomycin Level Trough 13.8 02/17/23 18:52: Glucometer 137 02/17/23 20:35: Glucometer 156 02/18/23 06:01: Glucometer 299 02/18/23 11:24: Glucometer 326 02/18/23 16:06: Glucometer 224 02/18/23 21:12: Glucometer 241 02/19/23 05:41: Glucometer 259 02/19/23 10:49: Glucometer 245 02/19/23 15:11: Glucometer 187 02/19/23 20:08: Glucometer 220 02/20/23 05:27: Glucometer 293 02/20/23 10:52: Glucometer 238 02/20/23 15:09: Glucometer 224 02/21/23 05:00: Vancomycin Level Trough 13.4 02/21/23 05:02: Glucometer 313 02/21/23 11:43: Glucometer 111 02/21/23 15:50: Glucometer 68 02/21/23 16:26: Glucometer 62 02/21/23 16:50: Glucometer 78 02/21/23 20:36: Glucometer 148 02/22/23 06:29: Glucometer 313 Discharge Home Medications: Active Scripts Active Doxycycline Hyclate 100 Mg Tablet 100 Mg PO BID [Vanco] 1,250 Mg IV Q12H X 42 DAYS (START 02/16/23) Multivitamin 1 Each Tablet 1 Each PO DAILY Tizanidine HCl 4 Mg Capsule 4 Mg PO BID K-Tab ER (Potassium Chloride) 10 Meq Tablet.er 20 Meq PO DAILY Pantoprazole Sodium 40 Mg Granpkt.dr 40 Mg PO BID Oxybutynin Chloride ER (Oxybutynin Chloride) 10 Mg Tab.er.24 10 Mg PO HS Metoprolol Succinate 25 Mg Tab.er.24h 25 Mg PO DAILY Metformin HCl ER (Metformin HCl) 500 Mg Tab.er.24h 500 Mg PO BID 60 Days Meloxicam 7.5 Mg Tablet 7.5 Mg PO DAILY Melatonin 10 Mg Capsule 10 Mg PO HS Meclizine HCl 25 Mg Tablet 25 Mg PO Q6H Hydroxyzine HCl 10 Mg Tablet 10 Mg PO TID Duloxetine HCl 40 Mg Capsule.dr 40 Mg PO BID 60 Days Cozaar (Losartan Potassium) 100 Mg Tablet 100 Mg PO DAILY 30 Days Iprat-Albut 0.5-3(2.5) mg/3 ml (Ipratropium/Albuterol Sulfate) 0.5 Mg-3 Mg (2.5 Mg Base)/3 Ml Ampul.neb 3 Ml IH Q6H PRN Gabapentin 800 Mg Tablet 800 Mg PO TID Lasix (Furosemide) 40 Mg Tablet 40 Mg PO DAILY Fluticasone-Vilanterol 100-25 (Fluticasone/Vilanterol) 100 Mcg-25 Mcg/Dose Blst.w.dev 1 Each IH DAILY Atorvastatin Calcium 80 Mg Tablet 80 Mg PO HS 30 Days Norvasc (Amlodipine Besylate) 10 Mg Tablet 10 Mg PO HS Famotidine 40 Mg Tablet 40 Mg PO BID Ventolin Hfa (Albuterol Sulfate) 1 Puff Puff 2 Puff INH Q6H 1 PUFF = 90 MCG Reported Pantoprazole Sodium 40 Mg Tablet.dr 40 Mg PO BID Humalog Kwikpen (Insulin Lispro) Unknown Strength Insuln.pen Units SQ SLIDING/SCALE MDD 120 UNITS Hydralazine HCl 25 Mg Tablet 25 Mg PO TID PRN MDD T Humulin R U-500 Kwikpen (Insulin Regular, Human) 500/Ml (3) Insuln.pen 90 Unit SQ BID Dicyclomine HCl 10 Mg Capsule 10 Mg PO TID PRN Citracal + D Maximum Caplet (Calcium Citrate/Vitamin D3) 315MG-6.25 Tablet 1 Each PO DAILY Amitriptyline HCl 50 Mg Tablet 50-100 Mg PO HS PRN Instructions to patient/family Please see electronic discharge instructions given to patient. Diagnosis/Problems Diagnosis/Problems (1) Status post amputation of left foot through metatarsal bone KRISTINA HERCULES DO Feb 22, 2023 06:39
[2023-02-22 07:47] VITALS: BP 145/71
[2023-02-22] MEDS: inSUlin (REGULAR) HUMAN 1 UNIT/0.01 ML (CHARGE PER UNIT) SC SCH (08:13)
[2023-02-22] MEDS: metFORMIN XR 500 MG (GLUCOPHAGE XR) TAB PO SCH (08:42)
[2023-02-22] MEDS: FAMOTIDINE 20 MG (PEPCID) TABLET PO SCH (08:42)
[2023-02-22] MEDS: DULoxetine 20 MG (CYMBALTA) CAP PO SCH (08:42)
[2023-02-22] MEDS: OXYBUTYNIN (DITROPAN) 5 MG TAB PO SCH (08:42)
[2023-02-22] MEDS: KCL 20 MEQ TAB (K-DUR) PO SCH (08:42)
[2023-02-22] MEDS: MULTIVIT W/MINERALS TAB (THERAGRAN M) PO SCH (08:42)
[2023-02-22] MEDS: PANTOPRAZOLE 40 MG (PROTONIX) TAB PO SCH (08:42)
[2023-02-22] MEDS: GABAPENTIN 400 MG (NEURONTIN) CAP PO SCH (08:42)
[2023-02-22] MEDS: MELOXICAM 7.5 MG (MOBIC) TABLET PO SCH (08:42)
[2023-02-22] MEDS: FUROSEMIDE 40 MG (LASIX) TAB PO SCH (08:42)
[2023-02-22] MEDS: hydrOXYzine (ATARAX) 10 MG TAB PO SCH (08:42)
[2023-02-22] MEDS: LOSARTAN 100 MG (COZAAR) TABLET PO SCH (08:43)
[2023-02-22] MEDS: DOCUSATE SODIUM 100 MG (COLACE) CAP PO SCH (08:43)
[2023-02-22] MEDS: polyethylene glycoL POWDER 17 GM (MIRALAX) PACK PO SCH (08:46)
[2023-02-22] MEDS: SENNA W/DOCUSATE (SENOKOT S) TABLET PO SCH (08:46)
[2023-02-22] MEDS: ENOXAPARIN 40 MG/0.4 ML (LOVENOX) SYR SC SCH (08:46)
[2023-02-22] MEDS: FLUTICASONE/VILANTEROL 100 MCG 14'S (BREO) IH SCH (09:49)
[2023-02-22] MEDS: POVIDONE (BETADINE) 10% SOLN 240 ML BTL TOP SCH (09:57)
[2023-02-22 11:46] VITALS: BP 145/71
--- NOTE | 2023-02-24 14:19 | Therapy Team Discharge Summary ---
Therapy Discharge Summary Discharge Recommendations Date of Discharge Feb 22, 2023 at 10:40 Physical Therapy Roll Left to Right (QC): 6 Sit to Lying (QC): 6 Lying to Sitting/Side of Bed(Q: 6 Sit to Stand (QC): 6 Chair/Tuf-bk-Dzhma Xfer(QC): 6 Toilet Transfer (QC): 5 Car Transfer (QC): 6 Does the Patient Walk: Yes Mode of Locomotion: Both Anticipated Mode of Locomotion: Both Walk 10 feet (QC): 4 Walk 50 ft with 2 Turns(QC): 88 Walk 150 ft (QC): 88 Walking 10ft on uneven surface: 4 Distance: 10ft Gait Assistive Device: FWW Does the Pt Use a Wheelchair: Yes Wheelchair Distance: 150ft Wheel 50 ft with 2 turns (QC): 6 Wheel 150 ft (QC): 6 Type of Wheelchair: Manual 1 Step (curb) (QC): 88 4 Steps (QC): 88 12 Steps (QC): 88 Walking Assistive Device: Walker Balance Sitting Static: Normal Balance Sitting Dynamic: Good Balance-Standing Static: Good Picking up an Object (QC): 6 Occupational Therapy Status post left first metatarsal amputation due to acute on chronic osteomyelitis with bone exposed on presentation. Diabetes mellitus with severe insulin resistance on large amount of regular insulin. Obesity. Noncompliance with BiPAP. Hypertension. Hyperlipidemia. Renal lithiasis history Decreased Activ Tolerance, Decreased UE Strength, Impaired Funct Balance, Impaired Self-Care Skills Eating (QC): 6 Oral Hygiene (QC): 6 Shower/Bathe Self (QC): 6 Upper Body Dressing (QC): 6 Lower Body Dressing (QC): 4 (SBA) On/Off Footwear (QC): 6 Toileting Hygiene (QC): 4 (Cleanses self then SBA for clothing manipulation.) PT Nutter Up Goals Nutter Up Goals PT Nutter Up Goals Time Frame: Feb 28, 2023 Roll Left to Right (QC): 6 (Pt will be Ind with bed mobility ) Sit to Lying (QC): 6 (Pt will be Ind with bed mobility ) Lying-Sitting on Side/Bed(QC): 6 (Pt will be Ind with bed mobility ) Sit to Stand (QC): 6 (Pt will be Ind with transfers ) Chair/Peb-eo-Povcg Xfer(QC): 6 (Pt will be Ind with transfers ) Toilet/Commode Transfer (QC): 6 (Pt will be Ind with transfers ) Car Transfer (QC): 6 (Pt will be Ind with transfers ) Does the Patient Walk: Yes Walk 10 feet (QC): 4 (Pt will be SBA for walking and stairs and abide by NWB to the L LE. ) Walk 10ft-Uneven Surface(QC): 4 (Pt will be SBA for walking and stairs and abide by NWB to the L LE. ) Walk 50ft with 2 Turns (QC): 4 (Pt will be SBA for walking and stairs and abide by NWB to the L LE. ) Walk 150 ft (QC): 4 (Pt will be SBA for walking and stairs and abide by NWB to the L LE. ) Does the Pt use WC or Scooter?: Yes Wheel 50 feet with 2 turns (QC: 6 (Ind with w/c ) Type: Manual Wheel 150 feet: 6 (Ind with w/c ) Type: Manual 1 Step (curb) (QC): 4 (Pt will be SBA for walking and stairs and abide by NWB to the L LE. ) 4 Steps (QC): 4 (Pt will be SBA for walking and stairs and abide by NWB to the L LE. ) 12 Steps (QC): 4 (Pt will be SBA for walking and stairs and abide by NWB to the L LE. ) Picking up an Object (QC): 6 (Ind with standing/picking up an object ) OT Skilled Nursing Goals Nutter Up Goals Acute change in mental status: 0 Inattention: 0 Disorganized thinkin Altered level of consciousness: 0 Eating (QC): 6 (met) Oral Hygiene (QC): 6 (met) Toileting Hygiene (QC): 6 (not met) Shower/Bathe Self (QC): 6 (nte) Upper Body Dressing (QC): 6 (met) Lower Body Dressing (QC): 6 (not met) On/Off Footwear (QC): 6 (met) 1=Demonstrate adherence to instructed precautions during ADL tasks. 2=Patient will verbalize/demonstrate understanding of assistive devices/modifications for ADL. 3=Patient will improve strength/tolerance for activity to enable patient to perform ADL's. DORIS BRAMBILA OT Feb 24, 2023 14:19
--- NOTE | 2023-02-24 14:23 | Therapy Team Discharge Summary ---
Therapy Discharge Summary Discharge Recommendations Date of Discharge Feb 22, 2023 at 10:40 Physical Therapy Roll Left to Right (QC): 6 Sit to Lying (QC): 6 Lying to Sitting/Side of Bed(Q: 6 Sit to Stand (QC): 6 Chair/Urs-rx-Cdlkp Xfer(QC): 6 Toilet Transfer (QC): 5 Car Transfer (QC): 6 Does the Patient Walk: Yes Mode of Locomotion: Both Anticipated Mode of Locomotion: Both Walk 10 feet (QC): 4 Walk 50 ft with 2 Turns(QC): 88 Walk 150 ft (QC): 88 Walking 10ft on uneven surface: 4 Distance: 10ft Gait Assistive Device: FWW Does the Pt Use a Wheelchair: Yes Wheelchair Distance: 150ft Wheel 50 ft with 2 turns (QC): 6 Wheel 150 ft (QC): 6 Type of Wheelchair: Manual 1 Step (curb) (QC): 88 4 Steps (QC): 88 12 Steps (QC): 88 Walking Assistive Device: Walker Balance Sitting Static: Normal Balance Sitting Dynamic: Good Balance-Standing Static: Good Picking up an Object (QC): 6 Occupational Therapy Status post left first metatarsal amputation due to acute on chronic osteomyelitis with bone exposed on presentation. Diabetes mellitus with severe insulin resistance on large amount of regular insulin. Obesity. Noncompliance with BiPAP. Hypertension. Hyperlipidemia. Renal lithiasis history PLOF Drives, is a parent of elementary age son w/ special needs, lives alone and patietn mother intermittent assists with child rearing. Uneven slope surface at back door w/ 4 steps, front entry 6 steps. At evaluation patient was min assist for LB ADLS, toileting and bathing, Ramp recommended at [place]. Patient progressed well with OT, meeting most goals and demonstrated improved BUE strength, balance and endurance to return home with outpatient services for therapy. Family assist for toileting and lower body dressing at SBA Decreased Activ Tolerance, Decreased UE Strength, Impaired Funct Balance, Impaired Self-Care Skills Eating (QC): 6 Oral Hygiene (QC): 6 Shower/Bathe Self (QC): 6 Upper Body Dressing (QC): 6 Lower Body Dressing (QC): 4 (SBA) On/Off Footwear (QC): 6 Toileting Hygiene (QC): 4 (Cleanses self then SBA for clothing manipulation.) PT Skilled Nursing Goals Geophysical Data Technician Goals PT Geophysical Data Technician Goals Time Frame: Feb 28, 2023 Roll Left to Right (QC): 6 (Pt will be Ind with bed mobility ) Sit to Lying (QC): 6 (Pt will be Ind with bed mobility ) Lying-Sitting on Side/Bed(QC): 6 (Pt will be Ind with bed mobility ) Sit to Stand (QC): 6 (Pt will be Ind with transfers ) Chair/Ztf-fg-Zzqqv Xfer(QC): 6 (Pt will be Ind with transfers ) Toilet/Commode Transfer (QC): 6 (Pt will be Ind with transfers ) Car Transfer (QC): 6 (Pt will be Ind with transfers ) Does the Patient Walk: Yes Walk 10 feet (QC): 4 (Pt will be SBA for walking and stairs and abide by NWB to the L LE. ) Walk 10ft-Uneven Surface(QC): 4 (Pt will be SBA for walking and stairs and abide by NWB to the L LE. ) Walk 50ft with 2 Turns (QC): 4 (Pt will be SBA for walking and stairs and abide by NWB to the L LE. ) Walk 150 ft (QC): 4 (Pt will be SBA for walking and stairs and abide by NWB to the L LE. ) Does the Pt use WC or Scooter?: Yes Wheel 50 feet with 2 turns (QC: 6 (Ind with w/c ) Type: Manual Wheel 150 feet: 6 (Ind with w/c ) Type: Manual 1 Step (curb) (QC): 4 (Pt will be SBA for walking and stairs and abide by NWB to the L LE. ) 4 Steps (QC): 4 (Pt will be SBA for walking and stairs and abide by NWB to the L LE. ) 12 Steps (QC): 4 (Pt will be SBA for walking and stairs and abide by NWB to the L LE. ) Picking up an Object (QC): 6 (Ind with standing/picking up an object ) OT Skilled Nursing Goals Skilled Nursing Goals Acute change in mental status: 0 Inattention: 0 Disorganized thinkin Altered level of consciousness: 0 Eating (QC): 6 (met) Oral Hygiene (QC): 6 (met) Toileting Hygiene (QC): 6 (not met) Shower/Bathe Self (QC): 6 (nte) Upper Body Dressing (QC): 6 (met) Lower Body Dressing (QC): 6 (not met) On/Off Footwear (QC): 6 (met) 1=Demonstrate adherence to instructed precautions during ADL tasks. 2=Patient will verbalize/demonstrate understanding of assistive devices/modifications for ADL. 3=Patient will improve strength/tolerance for activity to enable patient to perform ADL's. DORIS BRAMBILA OT Feb 24, 2023 14:23
--- NOTE | 2023-02-24 14:51 | Therapy Team Discharge Summary ---
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 Pt was NWB to the L LE. At PLOF, pt was Ind with no AD and driving. Upon PT eval, pt was SBA/CGA for bed mobility and transfers, pt ambulated 10ft with the FWW and CGA, and pt was SBA for w/c mobility. PT worked on B LE strengthening, transfers, standing balance, ambulation, and w/c mobility. Pt progressed well and met most set goals. Pt was able to ambulate up to 30ft with the FWW and CGA/SBA. Pt was Ind with w/c mobility of 350ft and pt was Ind with bed mobility and functional transfers. Pt was uable to safely complete stair training, but has a level entrance into the back of the home. D/C from ARU on 02/22/2023 to home with family/mother assistance and OP PT. D/C from PT at this time. Roll Left to Right (QC): 6 Sit to Lying (QC): 6 Lying to Sitting/Side of Bed(Q: 6 Sit to Stand (QC): 6 Chair/Fgp-xo-Impkw Xfer(QC): 6 Toilet Transfer (QC): 6 Car Transfer (QC): 6 Does the Patient Walk: Yes Mode of Locomotion: Both Anticipated Mode of Locomotion: Both Walk 10 feet (QC): 4 Walk 50 ft with 2 Turns(QC): 88 Walk 150 ft (QC): 88 Walking 10ft on uneven surface: 4 Distance: 30ft Gait Assistive Device: FWW Does the Pt Use a Wheelchair: Yes Wheelchair Distance: 350ft Wheel 50 ft with 2 turns (QC): 6 Wheel 150 ft (QC): 6 Type of Wheelchair: Manual 1 Step (curb) (QC): 88 4 Steps (QC): 88 12 Steps (QC): 88 Walking Assistive Device: Walker Balance Sitting Static: Normal Balance Sitting Dynamic: Good Balance-Standing Static: Good Picking up an Object (QC): 6 Occupational Therapy Decreased Activ Tolerance, Decreased UE Strength, Impaired Funct Balance, Impaired Self-Care Skills Eating (QC): 6 Oral Hygiene (QC): 6 Shower/Bathe Self (QC): 6 Upper Body Dressing (QC): 6 Lower Body Dressing (QC): 4 (SBA) On/Off Footwear (QC): 6 Toileting Hygiene (QC): 4 (Cleanses self then SBA for clothing manipulation.) PT Fdc Goals Dietitian Assistant Goals PT Dietitian Assistant Goals Time Frame: Feb 28, 2023 Roll Left to Right (QC): 6 (Pt will be Ind with bed mobility ) Sit to Lying (QC): 6 (Pt will be Ind with bed mobility ) Lying-Sitting on Side/Bed(QC): 6 (Pt will be Ind with bed mobility ) Sit to Stand (QC): 6 (Pt will be Ind with transfers ) Chair/Hjt-ll-Weedu Xfer(QC): 6 (Pt will be Ind with transfers ) Toilet/Commode Transfer (QC): 6 (Pt will be Ind with transfers ) Car Transfer (QC): 6 (Pt will be Ind with transfers ) Does the Patient Walk: Yes Walk 10 feet (QC): 4 (Pt will be SBA for walking and stairs and abide by NWB to the L LE. ) Walk 10ft-Uneven Surface(QC): 4 (Pt will be SBA for walking and stairs and abide by NWB to the L LE. ) Walk 50ft with 2 Turns (QC): 4 (Pt will be SBA for walking and stairs and abide by NWB to the L LE. ) Walk 150 ft (QC): 4 (Pt will be SBA for walking and stairs and abide by NWB to the L LE. ) Does the Pt use WC or Scooter?: Yes Wheel 50 feet with 2 turns (QC: 6 (Ind with w/c ) Type: Manual Wheel 150 feet: 6 (Ind with w/c ) Type: Manual 1 Step (curb) (QC): 4 (Pt will be SBA for walking and stairs and abide by NWB to the L LE. ) 4 Steps (QC): 4 (Pt will be SBA for walking and stairs and abide by NWB to the L LE. ) 12 Steps (QC): 4 (Pt will be SBA for walking and stairs and abide by NWB to the L LE. ) Picking up an Object (QC): 6 (Ind with standing/picking up an object ) OT Fdc Goals Fdc Goals Acute change in mental status: 0 Inattention: 0 Disorganized thinkin Altered level of consciousness: 0 Eating (QC): 6 (met) Oral Hygiene (QC): 6 (met) Toileting Hygiene (QC): 6 (not met) Shower/Bathe Self (QC): 6 (nte) Upper Body Dressing (QC): 6 (met) Lower Body Dressing (QC): 6 (not met) On/Off Footwear (QC): 6 (met) 1=Demonstrate adherence to instructed precautions during ADL tasks. 2=Patient will verbalize/demonstrate understanding of assistive devices/modifications for ADL. 3=Patient will improve strength/tolerance for activity to enable patient to perform ADL's. RJ CORDON PT Feb 24, 2023 14:51
== END 2023-02-22 10:40 | disposition home or self-care (01) | DRG 560 ==
PROVIDERS: ADMIT Internal Medicine; ATTEND Internal Medicine
DX: Z47.81 Encounter for orthopedic aftercare following surgical amputation (principal); Z68.41 Body mass index [BMI] 40.0-44.9, adult; Z89.432 Acquired absence of left foot; E11.40 Type 2 diabetes mellitus with diabetic neuropathy, unspecified; J44.9 Chronic obstructive pulmonary disease, unspecified; I10 Essential (primary) hypertension; E88.81 Metabolic syndrome and other insulin resistance; E66.9 Obesity, unspecified; G47.30 Sleep apnea, unspecified; E78.00 Pure hypercholesterolemia, unspecified; K21.9 Gastro-esophageal reflux disease without esophagitis; M19.90 Unspecified osteoarthritis, unspecified site; Z79.4 Long term (current) use of insulin; Z79.84 Long term (current) use of oral hypoglycemic drugs; Z91.199 Patient's noncompliance with other medical treatment and regimen due to unspecified reason; Z79.899 Other long term (current) drug therapy; Z88.5 Allergy status to narcotic agent; Z88.2 Allergy status to sulfonamides; Z91.09 Other allergy status, other than to drugs and biological substances
CPT/HCPCS: 36415; 80053; 80202; 82947; 85025; 94640; 94760